=== PATIENT | female | born 1995 | race Caucasian/White ===

== ENCOUNTER 2022-01-09 18:21 | Emergency (ER) | payer OTHER, SELFPAY ==
[2022-01-09 18:30] VITALS: BP 145/96; PULSE 144; RESP 20; TEMP 36.8; O2SAT 99
[2022-01-09 18:40] VITALS: PULSE 100
--- NOTE | 2022-01-09 18:53 | ED.URI ---
HPI - URI/Sore Throat General Chief Complaint: Upper Respiratory Infection Stated Complaint: SOB/Cough Time Seen by Provider: 01/09/22 18:44 Source: patient and RN notes reviewed Mode of arrival: ambulatory Limitations: no limitations History of Present Illness HPI Narrative: Patient presents today complaining of productive cough, shortness of breath with exertion, body aches, subjective fever with chills and sweats, sore throat, absent sense of smell. Currently rates her pain 7/10 and has been taking Advil cold and flu as well as cough drops without much relief. She took a rapid home COVID-19 test today that was negative. Denies history of asthma. She has been using a friend's albuterol inhaler as well, which has been helping. MD elicited complaint: cough Related Data Allergies Allergy/AdvReac Type Severity Reaction Status Date / Time No Known Allergies Allergy Unknown Verified 06/20/21 11:24 Review of Systems Review of Systems: CONSTITUTIONAL: + Chills, sweats, subjective fever, body aches EYES: Denies visual changes, redness, or discharge. ENT: Denies rhinorrhea, congestion, or otalgia.+ Sore throat CARDIOVASCULAR: Denies chest pain, palpitations, or edema. RESPIRATORY: + Cough, shortness of breath. GASTROINTESTINAL: Denies abdominal pain, nausea, vomiting, or diarrhea. GENITOURINARY: Denies dysuria or hematuria. SKIN: Denies rash, itching, or wounds. MUSCULOSKELETAL: Denies back pain, joint pain, or myalgia. NEUROLOGIC: Denies headache, numbness, tingling, or weakness. PSYCH: Denies depression or anxiety. FOR[facility]LY [facility] Past Medical History Medical History (Updated 01/09/22 @ 19:41 by Prema Deutsch, RUTHANN, ) Eczema Surgical History Surgical History Family History Family History Grandparent Hypertension Other Diabetes mellitus Family history of osteoarthritis Social History Social History Smoking status: Never smoker Second hand tobacco smoke exposure: No Alcohol intake: current Comments At time of signature, I have reviewed and agree with nursing past medical, surgical, social and family history unless otherwise noted. Please see nursing chart for further information. There is no relevant family history pertinent to the presenting complaint Exam Narrative: GENERAL: Ill-appearing, well-nourished, and in no acute distress. HEAD: Normocephalic, atraumatic. EYES: EOMI. No redness or drainage. Conjunctivae normal. ENT: Mucous membranes pink and moist. Nares congested with rhinorrhea. TMs normal bilaterally. Throat mildly erythematous and edematous without exudate. Uvula midline. NECK: Normal AROM. Supple. No lymphadenopathy. CHEST: No respiratory distress. Mildly labored with speaking. Wheezes throughout. HEART: Regular rate and rhythm. No murmur appreciated. Normal peripheral pulses. EXTREMITIES: Normal range of motion. No edema. SKIN: Warm, dry, no rash. Capillary refill normal. Normal skin turgor. NEURO: No focal deficits. Alert and oriented x3. Gait steady. PSYCH: Normal affect. No signs of depression or anxiety. Course Course Emergency Course: 1939-wheezing has improved after DuoNeb. Patient states she is able to take a deeper breath. Discussed plan for Covid drive-through testing and plan for prescriptions for albuterol and prednisone. Anticipatory guidance given. Level of Care: Express Care Visit Vital Signs Vital signs: Vital Signs Temperature 98.2 F 01/09/22 18:30 Pulse Rate 144 H 01/09/22 18:30 Respiratory Rate 20 01/09/22 18:30 Blood Pressure 145/96 H 01/09/22 18:30 Pulse Oximetry 99 01/09/22 18:30 Temperature 98.2 F 01/09/22 18:30 Pulse Rate 100 01/09/22 18:40 Respiratory Rate 20 01/09/22 18:30 Blood Pressure 145/96 H 01/09/22 18:30 Pulse Oximetry 99
[2022-01-09] MEDS: IPRATROPIUM BR 0.02% INH SOLN 0.5 MG/2.5 ML VIAL INHALATION (19:12)
[2022-01-09 19:14] VITALS: PULSE 103; RESP 22; O2SAT 94
[2022-01-09] MEDS: ALBUTEROL SULFATE NEB 2.5 MG/3 ML INH INHALATION (19:15)
[2022-01-09 19:35] VITALS: PULSE 99; RESP 21; O2SAT 98
== END 2022-01-09 19:56 | disposition home or self-care (01) ==
PROVIDERS: Emergency Provider Nurse Practitioner
DX: B34.9 Viral infection, unspecified (principal); Z20.822 Contact with and (suspected) exposure to COVID-19
CPT/HCPCS: 99213; G0463

== ENCOUNTER → 2022-01-11 00:45 | Outpatient (CLI) | payer OTHER, SELFPAY ==
[2022-01-11 12:00] LABS: SARS-CoV-2 RNA PCR Negative
== END ==
PROVIDERS: Visit Provider Nurse Practitioner
DX: B34.9 Viral infection, unspecified (principal); Z20.822 Contact with and (suspected) exposure to COVID-19
CPT/HCPCS: C9803; U0003; U0005

== ENCOUNTER 2022-12-06 13:08 | Emergency (ER) | payer OTHER, SELFPAY ==
[2022-12-06 13:19] VITALS: BP 138/87; PULSE 84; RESP 16; TEMP 36.4; O2SAT 100
--- NOTE | 2022-12-06 13:22 | ED.URI ---
HPI - URI/Sore Throat General Chief Complaint: Upper Respiratory Infection Stated Complaint: COUGH/LOSING VOICE Time Seen by Provider: 12/06/22 13:20 Source: patient and RN notes reviewed Mode of arrival: ambulatory Limitations: no limitations History of Present Illness HPI Narrative: 27-year-old female presents with multiple complaints. She reports exposure COVID last week and 3 days ago started having general malaise, cough, sore throat, nasal congestion. She reports she has also been having intermittent urine frequency, urgency, dysuria. She denies fever, aches, chills, sweats, abdominal pain, nausea, vomiting, back pain MD elicited complaint: cough, sore throat and other (UTI symptoms) Related Data Allergies Allergy/AdvReac Type Severity Reaction Status Date / Time No Known Allergies Allergy Unknown Verified 12/06/22 13:16 Review of Systems Review of Systems: CONSTITUTIONAL: Denies malaise, chills, sweats, or fever. EYES: Denies visual changes, redness, or discharge. ENT: Reports rhinorrhea, congestion, sore throat. Denies sinus pain, otalgia CARDIOVASCULAR: Denies chest pain, palpitations, or edema. RESPIRATORY: Reports cough. Denies dyspnea. GASTROINTESTINAL: Denies abdominal pain, nausea, vomiting, diarrhea : Reports intermittent dysuria, frequency. Denies suprapubic pain, abnormal vaginal discharge. Reports intermittent vaginal itching, denies vaginal discharge SKIN: Denies rash or itching. MUSCULOSKELETAL: Denies myalgia. NEUROLOGIC: Denies headache. All systems reviewed & are unremarkable except as noted in HPI and below PMFSH Past Medical History Medical History (Updated 12/06/22 @ 13:54 by Johanny Traore NP) Eczema Surgical History Surgical History Family History Family History Grandparent Hypertension Other Diabetes mellitus Family history of osteoarthritis Social History Social History Smoking status: Never smoker Second hand tobacco smoke exposure: No Alcohol intake: current Comments At time of signature, agree with nursing past medical, surgical, social and family history. There is no relevant family history pertinent to the presenting complaint Exam Narrative: GENERAL: Well-appearing, well-nourished, and in no acute distress. HEAD: Normocephalic EYES: PERRLA, conjunctivae clear ENT: Nares clear, turbinates edematous, clear discharge. Mucous membranes moist. TM pearly jorge with sharp light reflex bilaterally; no tragal tenderness. Oropharynx not erythematous without lesions. Tonsils not enlarged and without exudate, no drooling, no hoarseness, no trismus, uvula midline. NECK: Supple. No lymphadenopathy CHEST: Clear to auscultation, breath sounds equal. No wheezing, rhonchi, rales, or stridor. No respiratory distress, speaks in full sentences. HEART: Regular rate and rhythm. No murmur heard. ABD: No abdominal tenderness or CVA tenderness SKIN: Warm, dry, no rash. NEURO: Alert and oriented x3. PSYCH: Normal mood and affect Course Course Emergency Course: Discussed testing for STI with patient, discuss treatment while results are pending nurse's wheeze results for treatment. Patient prefers to wait for the results for treatment, she understands she may need to return for an injection. Patient is aware of diagnosis, understands and agrees to treatment plan. Anticipatory guidance given. Patient agrees to follow-up as directed and is aware of reasons to seek care at the emergency department. Portions of this record may have been created with voice recognition software Level of Care: Express Care Visit Vital Signs Vital signs: Vital Signs Temperature 97.6 F 12/06/22 13:19 Pulse Rate 84 12/06/22 13:19 Respiratory Rate 16 12/06/22 13:19 Blood Pressure 138/87 12/06/22 13:19
== END 2022-12-06 13:58 | disposition home or self-care (01) ==
PROVIDERS: Emergency Provider Nurse Practitioner
DX: J06.9 Acute upper respiratory infection, unspecified (principal); R30.0 Dysuria; Z20.822 Contact with and (suspected) exposure to COVID-19
CPT/HCPCS: 81003; 81025; 87426; 87491; 87591; 87661; 99214; C9803; G0463

== ENCOUNTER 2023-03-01 16:22 | Emergency (ER) | payer OTHER, SELFPAY ==
--- NOTE | ~2023-03-01 | XR_ITS ---
EXAMINATION: XR shoulder LT min 2V INDICATION: Shoulder pain TECHNIQUE: Three views of the left shoulder are submitted. COMPARISON: None FINDINGS: Normal alignment. No fracture. Glenohumeral and acromioclavicular joint spaces are normal. Soft tissues are unremarkable. IMPRESSION: 1. No acute osseous abnormality. Reviewed, dictated and finalized at location F.
[2023-03-01 16:33] VITALS: BP 127/80; PULSE 111; RESP 16; TEMP 36.5; O2SAT 100
--- NOTE | 2023-03-01 17:16 | ED.UPPEXIN ---
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 Patient reports she was lying on floor and when she used her arm to push herself up she felt a pop in her left shoulder. Patient states she she has shooting pain to her left shoulder shoulder now with full ROM noted with stated discomfort.Patient has strong pulses to her left arm with no reported tingling or numbness. Patient reports that she has been taking Ibuprofen for her discomfort which she rates at 3-4/10. MD complaint: injury to: shoulder Onset (ago): day(s) (4 days) Severity scale (1-10): 4 Treatments prior to arrival: NSAIDS Related Data Home Medications Medication Instructions Recorded Confirmed penicillin V potassium 500 mg 500 mg PO QID 03/01/23 03/01/23 tablet Allergies Allergy/AdvReac Type Severity Reaction Status Date / Time No Known Allergies Allergy Unknown Verified 03/01/23 16:34 Review of Systems Review of Systems: CONSTITUTIONAL: Denies fever, chills, or sweats. EYES: Denies visual changes, redness, or discharge. ENT: Denies rhinorrhea, congestion, sore throat, or otalgia. CARDIOVASCULAR: Denies chest pain, palpitations, or edema. RESPIRATORY: Denies cough or dyspnea. GASTROINTESTINAL: Denies abdominal pain, nausea, vomiting, or diarrhea. GENITOURINARY: Denies dysuria or hematuria. SKIN: Denies rash or itching. MUSCULOSKELETAL: Denies back pain,left shoulder pain, or myalgia. NEUROLOGIC: Denies headache, numbness, or weakness. PSYCHIATRIC: Denies anxiety or depression. All systems reviewed & are unremarkable except as noted in HPI and below PMFSH Past Medical History Medical History (Updated 03/02/23 @ 08:14 by Katiuska Cervantes NP) Eczema Surgical History Surgical History Family History Family History Grandparent Hypertension Other Diabetes mellitus Family history of osteoarthritis Social History Social History Smoking status: Never smoker Second hand tobacco smoke exposure: No Alcohol intake: current Substance use: current Substance use type: marijuana Gender identity (if verbalized by the patient): Female Comments At time of signature, agree with nursing past medical, surgical, social and family history. There is no relevant family history pertinent to the presenting complaint Exam Narrative: GENERAL: Well-appearing, well-nourished, and in no acute distress. HEAD: Normocephalic, atraumatic. EYES: PERRLA and EOMI. ENT: Nares clear, no rhinorrhea or epistaxis. Mucous membranes moist.TM's normal with good light reflex, throat pink no swelling NECK: Supple.no lymphadenopathy CHEST: Clear to auscultation. No respiratory distress. SAO2 100% on room air HEART: Regular rate and rhythm. No murmur heard. Normal peripheral pulses. ABDOMEN: Soft, nontender, nondistended, normal active bowel sounds. EXTREMITIES: Normal range of motion. No edema. Reports pain to left shoulder especially when she reaches up, full ROM with normal sensation and circulation, no bruising or obvious deformity SKIN: Warm, dry, no rash. NEURO: No focal deficits. Alert and oriented x3. Course Course Emergency Course: Patient is aware of diagnosis, understands and agrees to treatment plan.? Anticipatory guidance given.? Patient agrees to follow-up as directed and is aware of reasons to seek care at the emergency department. Portions of this record may have been created with voice recogniti
== END 2023-03-01 17:56 | disposition home or self-care (01) ==
PROVIDERS: Emergency Provider Registered Nurse
DX: S43.402A Unspecified sprain of left shoulder joint, initial encounter (principal); X50.9XXA Other and unspecified overexertion or strenuous movements or postures, initial encounter; F12.90 Cannabis use, unspecified, uncomplicated
CPT/HCPCS: 73030; 99213; G0463

== ENCOUNTER 2025-06-24 15:12 | Emergency (ER) | payer OTHER, SELFPAY ==
[2025-06-24] VITALS (14 sets, daily range): BP systolic 135–140; BP diastolic 95–96; PULSE 84–91; RESP 16–18; TEMP 35.9–36.3; O2SAT 95–100
--- OUTSIDE RECORDS SUMMARY | 2025-06-24 15:20 | XMS_ITS | Encounter Summary ---
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 Name Role Phone None, Provider Primary Care Provider Unavaila ble Reason for Referral * Imaging (Emergency) - New Request Specialty Diagnoses / Procedures Referred By Celio newman Referred To Contact RADIOLOGY Procedures CT HEAD WO CON Lacho Norris PA [address] [place] [address] Phone: tel: fax: Referral ID Status Reason Start Date Expiration Date V isits Requested Visits Authorized [id number] New Request 06/24/2025 06/24/2026 1 1 Reason for Visit * Reason Comments Syncope Encounter Details Date Type Department Care Team (Late st Contact Info) Description 06/24/2025 7:51 AM CDT - 06/24/2025 12:38 PM CDT Emergency [facility] [place] [address] Lacho Norris PA [address] [place], [place] [id number] Syncope Discharge Disposition: Home or Self Care (Routine Discharge) Social History Tobacco Use Types Packs/Day Years Used Date Smoking Tobacco: Never Smokeless Tobacco: Never Alcohol Use Standard Drinks/Week Comments Yes 0 (1 standard drink = 0.6 oz pur e alcohol) <1/week Comments Yes Sex and Gender Information Value Date Recorded Sex Assigned at Female 06/24/2025 8:19 AM CDT Legal Sex Female 1:20 PM CDT Gender Identity Not on file Sexual Orientation Not on file documented as of this encounter Last Filed Vital Signs Vital Sign Reading Time Taken Comments Blood Pressure 133/78 06/24/2025 12:37 PM CDT Pulse 82 06/24/2025 12:37 PM CDT Temperature 36.8 C (98.3 F) 06/24/2025 7:46 AM CDT Respiratory Rate 18 06/24/2025 12:37 PM CDT Oxygen Saturation 99% 06/24/2025 12:37 PM CDT Inhaled Oxygen Concentration - - Weight 84 kg (185 lb 3 oz) 06/24/2025 7:46 AM CD T Height 165.1 cm (5' 5) 06/24/2025 7:46 AM CDT Body Mass Index 30.82 06/24/2025 7:46 AM CDT documented in this encounter Functional Status * Calculated C-SSRS Risk Score (Lifetime/Recent) Answer Date of Assessment Author Status No Risk Indicated 06/24/2025 7:48 AM CDT Tiburcio Coon, RN Active * [place] Suicide Severity Rating Scale (Screener/Recent Self-Report) Question Answer Date of Assessment Author Status 1. Wish to be (Past 1 Month) No 06/24/2025 7:48 AM CDT Jef Coon, RN Acti ve 2. Non-Specific Active Suicidal Thoughts (Past 1 Month) No 06/24/2025 7:48 AM CDT Jef Coon, RN Acti ve 6. Suicidal Behavior (Lifetime) No 06/24/2025 7:48 AM CDT Jef Coon, RN Acti ve documented as of this encounter Discharge Instructions * Discharge Instructions* LYNNE Estrada - 06/24/2025 12:17 PM CDT Please avoid any driving until cleared by your primary care provider or neurologist. Avoid also anyactivities that would put you at risk for head injury such as bicycle riding or swimming alone. Echljei-sti-odvjhun ibuprofen or Tylenol as directed for any pain. May use Zofran as needed for any nausea. Return emergency department if symptoms continue or worsen. * Attachments The following attachments cannot be sent through Care Everywhere. * Seizures Discharge Instructions, Adult ([place] Island[place]) documented in this encounter Medications at Time of Discharge ondansetron (ZOFRAN-ODT) 4 MG disintegrating tablet Take 1 tablet (4 mg total) by mouth every 8 (eight) hours as needed. 20 tablet 06/24/2025 hydrOXYzine (VISTARIL) 25 MG capsuleIndications: Ruptured ectopic (HHS/HCC),S/P laparoscopy Take 1-2 capsules (25-50 mg total) by mouth 4 (four) times daily as needed for Itching or Anxiety (insomnia, nausea or pain). May substitute tabs and or any form of hydroxyzine 30 capsule 2 05/22/2024 oxyCODONE-acetamino phen (PERCOCET) 5-325 MG tabletIndications:A cute Pain < 7 Day Supply Take 1 tablet by mouth every 6 (six) hours as needed. Indications: Acute Pain < 7 Day Supply 15 tablet 05/22/2024 documented as of this encounter ED Notes * Soraya Stephens RN - 06/24/2025 11:02 AM CDT Bed: 22 Expected date: Expected time: Means of arrival: Comments: * Jef Coon RN - 06/24/2025 7:44 AM CDT Patient ambulatory to triage with complaint of a syncopal episode that occurred this morning. Notesshe was vomiting and then loss consciousness. Notes she only remembers waking up. Informed of syncope by her boyfriend.States she is unsure of the duration she was out. Notes headache and cough. Per her boyfriend, he heard a loud crash and found her convulsing on the ground. Confused when she woke but came around quickly. No previous history of seizures or syncope. Per boyfriend she was feeling and acting normally before bed last night. documented in this encounter Plan of Treatment Upcoming Encounters Date Type Department Care Team (Late st Contact Info) Description 08/12/2025 8:20 AM CDT Office Visit [facility] - [address], [address] [place] [address] Gauri Reilly MD [address] [place] [phone] Pending Results Name Type Priority Associated Diagnoses Date /Time ECG 12 lead EKG-NonRad Routine 06/24/2025 8: 32 AM CDT documented as of this encounter Procedures Procedure Name Priority Date/Time Associated Diagnosis Comments CT HEAD WO CON STAT 06/24/2025 9:43 AM CDT ECG 12-LEAD Routine 06/24/2025 8:32 AM CDT Procedure Note - 06/24/2025 8:32 AM CDTThis note is in progress. 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 : 1995 Requested By: LACHO NORRIS Order Number: [id number] Reading MD: Measurements Intervals Ramona Rate: 67 P: 48 DC: 155 QRS: 72 QRSD: 90 T: 56 QT: 374 QTc: 396 Interpretive Statements SINUS RHYTHM WITH SINUS ARRHYTHMIA POSSIBLE LEFT ATRIAL ENLARGEMENT [-0.1mV P-WAVE IN V1/V2] MINIMAL ST DEPRESSION [0.025+ mV ST DEPRESSION] No previous ECG available for comparison COMPREHENSIVE METABOLIC PANEL STAT 06/24/2025 8:27 AM CDT HCG QUANT (SERUM)-CHORIONIC GONADOTROPIN STAT 06/24/2025 8:27 AM CDT CBC W/DIFF AUTOMATED STAT 06/24/2025 8:27 AM CDT TROPONIN, QUANT Routine 06/24/2025 8:27 AM CDT MAGNESIUM STAT 06/24/2025 8:27 AM CDT URINALYSIS STAT 06/24/2025 8:26 AM CDT documented in this encounter Results * CT HEAD WO CON (06/24/2025 9:43 AM CDT) Anatomical Region Laterality Modality Head Computed Tomogra phy 06/24/2025 10:3 1 AM CDT Impressions 06/24/2025 10:32 AM CDT =====IMPRESSION:===== Unremarkable noncontrast CT of the head; no acute intracranial process identified. (CT has limited sensitivity for detection of acute ischemia). If acute ischemia is of clinical concern MRI can be considered. Ordered By: LACHO NORRIS Interpreted By: Yoselin Garcia MD, 06/24/2025 10:31 AM Narrative 06/24/2025 10:32 AM CDT [address] [address] Exam: CT head without contrast Exam Date/Time: 06/24/2025 9:38 AM Indication: 29 female. With syncopal episode Headache, possible seizure Comparison: None Technique: Computed tomography of the head performed without contrast from the vertex to the skull base. A dose lowering technique was used for this procedure, which may include, but is not limited to, dose reduction technique, automated exposure control, the use of iterative reconstruction, and ALARA (As Low As Reasonably Achievable) / Image Gently techniques. CT findings: Normal ventricles and sulci. No intracranial hemorrhage, extra-axial collection, mass effect or midline shift. No acute or chronic infarct identified. [place]-white association is normal. No other abnormal parenchymal density seen. Basilar cisterns are patent. Visualized posterior fossa is grossly unremarkable. Visualized orbits and orbital structures are unremarkable. Mild ethmoid and left maxillary sinus inflammatory mucosal thickening. Remaining imaged sinuses and mastoid air cells are clear. No scalp soft tissue swelling or hematoma identified. Calvarium is unremarkable. Procedure Note Yoselin Garcia MD - 06/24/[address] [address] Exam: CT head without contrast Exam Date/Time: 06/24/2025 9:38 AM Indication: 29 female. With syncopal episode Headache, possible seizure Comparison: None Technique: Computed tomography of the head performed without contrast fromthe vertex to the skull base. A dose lowering technique was used for thisprocedure, which may include, but is not limited to, dose reductiontechnique, automated exposure control, the use of iterativereconstruction, and ALARA (As Low As Reasonably Achievable) / Image Gentlytechniques. CT findings: Normal ventricles and sulci. No intracranial hemorrhage, extra-axialcollection, mass effect or midline shift. No acute or chronic infarct identified. [place]-white association is normal.No other abnormal parenchymal density seen. Basilar cisterns are patent. Visualized posterior fossa is grosslyunremarkable. Visualized orbits and orbital structures are unremarkable. Mild ethmoid and left maxillary sinus inflammatory mucosal thickening.Remaining imaged sinuses and mastoid air cells are clear. No scalp soft tissue swelling or hematoma identified. Calvarium isunremarkable. =====IMPRESSION:===== Unremarkable noncontrast CT of the head; no acute intracranial processidentified. (CT has limited sensitivity for detection of acute ischemia). If acuteischemia is of clinical concern MRI can be considered. Ordered By: LACHO NORRIS Interpreted By: Yoselin Garcia MD, 06/24/2025 10:31 AM us [facility] Final Resul t * TROPONIN, QUANT (06/24/2025 8:27 AM CDT) [facility] TROPONIN I HIGH SENSITIVITY 4 <54 ng/L 06/24/2025 9:20 AM CDT [facility] Comment: HIGH DOSES OF BIOTIN, TROPONIN-SPECIFIC AUTOANTIBODIES, AND ANTIBODY THERAPY CONTAINING HAMA MAY INTERFERE WITH THIS TEST RESULT. CORRELATION TO CLINICAL HISTORY AND PRESENTATION RECOMMENDED. 06/24/2025 8:27 AM CDT [facility] Final Resul t Performing Organization Address City/[facility] Co de Phone Number [facility] [address] [place] [address], * MAGNESIUM (06/24/2025 8:27 AM CDT) [facility] MAGNESIUM 2.3 1.8 - 2.4 MG/DL 06/24/2025 9:02 AM CDT [facility] 06/24/2025 8:27 AM CDT [facility] Final Resul t Performing Organization Address City/[facility] Co de Phone Number [facility] [address] [place] [phone], * Quantitative HCG (06/24/2025 8:27 AM CDT) [facility] HCG QUANTITATIVE <1 MIU/ML 06/24/20 9:23 AM CDT [facility] Comment: WEEKS OF REFERENCE RANGES Non- female < or = 2 0.2 - 1 5 - 50 1 - 2 50 - 500 2 - 3 100 - 5000 3 - 4 500 - 10,000 4 - 5 1000 - 50,000 5 - 6 10,000 - 100,000 6 - 8 15,000 - 200,000 2 - 3 MONTHS 10,000 - 100,000 06/24/2025 8:27 AM CDT us [facility] Final Resul t [facility] [address] [place] [address], [place] [phone] * (ABNORMAL) COMPREHENSIVE METABOLIC PANEL (06/24/2025 8:27 AM CDT) [facility] GLUCOSE 110(H) 70 - 99 MG/DL 06/24/2025 9:02 AM CDT [facility] BUN 16 7 - 18 MG/DL 06/24/2025 9:02 AM CDT [facility] CREATININE S/P/B 0.80 0.55 - 1.02 MG/DL 06/24/2025 9:02 AM CDT [facility] SODIUM S/P/B 138 136 - 145 MMOL/L 06/24/2025 9:02 AM CDT [facility] POTASSIUM S/P/B 4.0 3.5 - 5.1 MMOL/L 06/24/2025 9:02 AM CDT [facility] CHLORIDE S/P/B 107 97 - 115 MMOL/L 06/24/2025 9:02 AM CDT [facility] CO2 26.2 21 - 32 MMOL/L 06/24/2025 9:02 AM CDT [facility] CALCIUM S/P/B 9.6 8.5 - 10.1 MG/DL 06/24/2025 9:02 AM CDT [facility] BILIRUBIN TOTAL S/P/B 0.4 0.2 - 1.2 MG/DL 06/24/2025 9:02 AM CDT [facility] Comment: THIS ASSAY IS NOT RECOMMENDED FOR PATIENTS UNDERGOING TREATMENT WITH ELTROMBOPAG DUE TO THE POTENTIAL FOR FALSELY ELEVATED RESULTS. TOTAL PROTEIN S/P/B 7.8 6.4 - 8.2 G/DL 06/24/2025 9:02 AM CDT [facility] ALBUMIN S/P/B 4.0 3.4 - 5.0 G/DL 06/24/2025 9:02 AM CDT [facility] AST 16 15 - 37 U/L 06/24/2025 9:02 AM CDT [facility] ALT 27 14 - 55 U/L 06/24/2025 9:02 AM CDT [facility] ALKALINE PHOSPHATASE S/P/B 74 50 - 136 U/L 06/24/2025 9:02 AM CDT [facility] ANION GAP 4.8 2 - 10 MMOL/L 06/24/2025 9:02 AM T [facility] BUN CREATININE RATIO 20.1 6 - 26 06/24/2025 9:02 AM T [facility] A/G RATIO 1.1 1.0 - 2.0 RATIO 06/24/2025 9:02 AM T [facility] GFR ESTIMATE >90 >90 ML/MIN/1.7 3 M2 06/24/2025 9:02 AM T [facility] Comment: NOTE: eGFR is not calculated for patients <18 years of age or gender unknown. This is an estimated GFR calculation using the new CKD EPI creatinine equation without race and so does not require a correction factor for race. This estimated GFR should not be used for calculating drug doses. 06/24/2025 8:27 AM CDT [facility] Final Resul t [facility] [address] [place] [address], [place] [phone] * (ABNORMAL) CBC W/DIFF AUTOMATED (06/24/2025 8:27 AM CDT) [facility] WBC 8.45 4.5 - 11.0 x10'3/uL 06/24/2025 8:39 AM CDT [facility] RBC 4.92 4.20 - 5.40 x10'6/uL 06/24/2025 8:39 AM CDT [facility] HGB 14.0 12.0 - 16.0 G/DL 06/24/2025 8:39 AM CDT [facility] HCT 41.9 38.0 - 48.0 % 06/24/2025 8:39 AM CDT [facility] MCV 85.2 81.0 - 99.0 FL 06/24/2025 8:39 AM CDT [facility] MCH 28.5 27.0 - 31.0 PG 06/24/2025 8:39 AM CDT [facility] MCHC 33.4 32.0 - 36.0 G/DL 06/24/2025 8:39 AM CDT [facility] RDW 13.3 11.5 - 14.5 % 06/24/2025 8:39 AM CDT [facility] PLT 319 130 - 400 x10'3/uL 06/24/2025 8:39 AM CDT [facility] MPV 10.0 9.3 - 12.2 FL 06/24/2025 8:39 AM CDT [facility] DIFFERENTIAL TYPE AUTOMATED DIFFERENTIAL 06/24/2025 8:39 AM CDT [facility] NEUTROPHILS % 66.2 % 06/24/2025 8:39 AM CDT [facility] LYMPHOCYTES % 16.7 % 06/24/2025 8:39 AM CDT [facility] MONOCYTES % 7.1 % 06/24/2025 8:39 AM CDT [facility] EOSINOPHILS 8.9 % 06/24/2025 8:39 AM CDT [facility] BASOPHILS 0.9 % 06/24/2025 8:39 AM CDT [facility] IMMATURE GRANS % 0.2 % 06/24/20 8:39 AM CDT [facility] ABS. NEUTROPHILS 5.59 1.80 - 7.70 x10'3/uL 06/24/2025 8:39 AM CDT [facility] ABS. LYMPHOCYTES 1.41 1.00 - 4.80 x10'3/uL 06/24/2025 8:39 AM CDT [facility] ABS. MONOCYTES 0.60 0.24 - 0.86 x10'3/uL 06/24/2025 8:39 AM CDT [facility] ABS. EOSINOPHILS 0.75(H) 0.04 - 0.36 x10'3/uL 06/24/2025 8:39 AM CDT [facility] ABS. BASOPHILS 0.08 0.01 - 0.08 x10'3/uL 06/24/2025 8:39 AM CDT [facility] ABS. IMMATURE GRANULOCYTES 0.02 0.00 - 0.49 x10'3/uL 06/24/2025 8:39 AM CDT [facility] 06/24/2025 8:27 AM CDT us [facility] Final Resul t [facility] [address] [place] [address], [place] [phone] * (ABNORMAL) URINALYSIS (06/24/2025 8:26 AM CDT) SPECIMEN TYPE URINE CLEAN CATCH 06/24/2025 8:27 AM T [facility] COLOR (U) LIGHT YELLOW 06/24/2025 9:04 AM T [facility] TRANSPARENCY CLEAR 06/24/2025 9:04 AM [facility] SPECIFIC GRAVITY (U) 1.028 1.001 - 1.030 06/24/2025 9:04 AM T [facility] U PH 6.0 5.0 - 9.0 06/24/2025 9:04 AM [facility] LEUKOCYTES (U) NEGATIVE NEGATIVE 06/24/2025 9:04 AM T [facility] NITRITES NEGATIVE NEGATIVE 06/24/2025 9:04 AM [facility] PROTEIN RANDOM (U) 300(H) <30 MG/DL 06/24/2025 9:04 AM T [facility] GLUCOSE (U) NORMAL NORMAL MG/DL 06/24/2025 9:04 AM [facility] KETONES MG/DL (U) 10(A) NEGATIVE MG/DL 06/24/2025 9:04 AM [facility] UROBILINOGEN NORMAL NORMAL MG/DL 06/24/2025 9:04 AM T [facility] BILIRUBIN (U) NEGATIVE NEGATIVE MG/DL 06/24/2025 9:04 AM [facility] BLOOD (U) TRACE(A) NEGATIVE 06/24/2025 9:04 AM T [facility] MUCUS RARE /LPF 06/24/2025 9:04 AM [facility] WBC/HPF 2 <6 /HPF 06/24/2025 9:04 AM [facility] RBC/HPF 1 <6 /HPF 06/24/2025 9:04 AM CDT [facility] URINE SPECIMEN OBTAINED BY CLEAN CATCH PROCEDURE / Unknown 06/24/2025 8:26 AM CDT [facility] URINE ORDERABLES Final Resu lt [facility] [address] [place] [address], documented in this encounter Visit Diagnoses Diagnosis Blunt head injury- Primary Head injury, unspecified Syncope Syncope and collapse Seizure-like activity ([facility]/HCC) Other convulsions documented in this encounter Administered Medications Inactive Administered Medications - up to 3 most recent administrations Medication Order MAR Action Action Date Dose Rate Site famotidine (PF) (PEPCID) injection 20 mg 20 mg, Intravenous, Once, 1 dose, On Debbie 06/24/25 at 0830, IV Push over 2 minutes Given 06/24/2025 8:31 AM CDT 20 mg ketorolac (TORADOL) injection 15 mg 15 mg, Intravenous, Once, 1 dose, On Debbie 06/24/25 at 1200, For IV administration, give over 15 seconds. Given 06/24/2025 12:02 PM CDT 15 mg ondansetron (ZOFRAN) injection 4 mg 4 mg, Intravenous, Once, 1 dose, On Debbie 06/24/25 at 0830, IV push over 2-5 minutes. Given 06/24/2025 8:31 AM CDT 4 mg ondansetron (ZOFRAN) injection 4 mg 4 mg, Intravenous, Once, 1 dose, On Debbie 06/24/25 at 1130, IV push over 2-5 minutes. Given 06/24/2025 11:32 AM CDT 4 mg sodium chloride 0.9% bolus infusion 1,000 mL 1,000 mL, Intravenous, Administer over 30 Minutes, Once, 1 dose, On Debbie 06/24/25 at 0830 New Bag 06/24/2025 8:31 AM CDT 1,000 mLs 2000 mL/hr documented in this encounter Active and Recently Administered Medications Times are shown in CDT. Scheduled Medication Order 06/22/2025 06/23/2025 06/24/2025 famotidine (PF) (PEPCID) injection 20 mg (COMPLETED) 20 mg, Intravenous, Once, 1 dose, On Debbie 06/24/25 at 0830, IV Push over 2 minutes 0831 (Given - Provid er: Kaylie Larson, RN) ketorolac (TORADOL) injection 15 mg (COMPLETED) 15 mg, Intravenous, Once, 1 dose, On Debbie 06/24/25 at 1200, For IV administration, give over 15 seconds. 1202 (Given - Provid er: Eileen Matos, YOSHI) ondansetron (ZOFRAN) injection 4 mg (COMPLETED) 4 mg, Intravenous, Once, 1 dose, On Debbie 06/24/25 at 0830, IV push over 2-5 minutes. 0831 (Given - Provid er: Kaylie Larson, YOSHI) ondansetron (ZOFRAN) injection 4 mg (COMPLETED) 4 mg, Intravenous, Once, 1 dose, On Debbie 06/24/25 at 1130, IV push over 2-5 minutes. 1132 (Given - Provid er: Thi Ballesteros, YOSHI) sodium chloride 0.9% bolus infusion 1,000 mL (COMPLETED) 1,000 mL, Intravenous, Administer over 30 Minutes, Once, 1 dose, On Debbie 06/24/25 at 0830 0831 (New Bag - Prov ider: Kaylie Larson, YOSHI)1114 (Infusion Stop Time - Provider: Thi Ballesteros RN) documented in this encounter Care Teams [employer] Gauger Relationship Specialty Start Date End Date None, Provider, MD PCP - General UNKNOWN PHYSICIAN SPECIALTY 05/11/24 documented as of this encounter
--- OUTSIDE RECORDS SUMMARY | 2025-06-24 15:20 | XMS_ITS | Clinical Summary ---
Author Organization [facility] Address [address] [place] [address] Care Team Providers Care Master [employer] Name Role Phone Unavailable Primary Care Provider Unavailabl e Allergies No known active allergies Medications ibuprofen (MOTRIN) 600 mg tablet Take 1 Tablet (600 mg) by mouth every 6 hours as needed for Pain. 30 Tablet 5 Active benzonatate (TESSALON) 200 mg capsule Take 1 Capsule (200 mg) by mouth 3 times daily. 30 Capsule 5 Active albuterol sulfate HFA 90 mcg/actuation aerosol inhaler Take 2 Puffs by inhalation every 4 hours as needed for Shortness of Breath, Wheezing or Other (See Comment) (cough). 8.5 Gram 5 Active ondansetron (ZOFRAN ODT) 4 mg Tablet, Rapid Dissolve Take 1 Tablet (4 mg) by mouth every 8 hours as needed for Nausea/Emesis. Dissolve tablet on top of tongue, then swallow with saliva. 10 Tablet 5 Active Active Problems No known active problems Encounters Date Type Department Care Team Description 06/16/2025 External Device Data [facility]CTION Provider, Abstract 05/19/2025 External Device Data [facility] Provider, Abstract 05/18/2025 External Device Data [facility] Provider, Abstract 05/18/2025 External Device Data [facility] Provider, Abstract 05/04/2025 External Device Data [facility] Provider, Abstract 04/22/2025 External Device Data [facility] Provider, Abstract 04/21/2025 External Device Data [facility] Provider, Abstract 04/21/2025 External Device Data [facility]STRACTION Provider, Abstract 04/20/2025 External Device Data [facility] Provider, Abstract 04/17/2025 9:22 PM CDT - 04/18/2025 1:12 AM CDT Emergency [facility] Emergency Department [address] [place] [address] Singh Mustafa MD Viral illness (Primary Dx); Dehydration; Nausea and vomiting, unspecified vomiting type; Dermoid cyst of left ovary Discharge Disposition: Home or Self Care 04/17/2025 4:00 PM CDT Office Visit [facility] [address] [place] [phone] Catherine Bush FNP Viral upper respiratory illness (Primary Dx); Sore throat; Contact with and (suspected) exposure to covid-19 04/17/2025 Travel from Last 3 Months Social History Tobacco Use Types Packs/Day Years Used Date Smoking Tobacco: Never Assessed Comments Unknown Sex and Gender Information Value Date Recorded Sex Assigned at Not on file Legal Sex Female 11:59 PM CDT Gender Identity Not on file Sexual Orientation Not on file Last Filed Vital Signs Vital Sign Reading Time Taken Comments Blood Pressure 147/88 04/18/2025 1:11 AM CDT Pulse 79 04/18/2025 1:11 AM CDT Temperature 36.6 C (97.9 F) 04/18/2025 1:11 AM CDT Respiratory Rate 18 04/18/2025 1:11 AM CDT Oxygen Saturation 99% 04/18/2025 1:11 AM CDT Inhaled Oxygen Concentration - - Weight 81.6 kg (180 lb) 04/17/2025 9:17 PM CDT Height 165.1 cm (5' 5) 04/17/2025 9:17 PM CDT Body Mass Index 29.95 04/17/2025 9:17 PM CDT Plan of Treatment Health Maintenance Due Date Last Done Comments HPV VACCINES (1 - 3-dose series) 2010 DTAP/TDAP/TD VACCINES (3 - Tdap) 2014 12/05/18 96, 1995 CERVICAL CANCER SCREENING 2016 HPV/Cotest (21-29) 2016 PAP SMEAR 2016 INFLUENZA VACCINE (#1) 2025 HEPATITIS B VACCINES Completed 03/12/1996, 1995, 1995 Procedures Procedure Name Priority Date/Time Associated Diagnosis Comments CT 2D RECONSTRUCTION Stat 04/18/2025 12:[address] ABDOMEN PELVIS W CONTRAST Stat 04/18/2025 12:18 AM CDT URINALYSIS W/REFLEX MICROSCOPIC Stat 04/17/2025 10:16 PM CDT POC , URINE Stat 04/17/2025 10:14 PM CDT MONONUCLEOSIS SCREEN Stat 04/17/2025 10:00 PM CDT POC CREATININE Stat 04/17/2025 9:53 PM CDT RESPIRATORY PATHOGEN PCR PANEL Stat 04/17/2025 9:53 PM CDT PROLACTIN Stat 04/17/2025 9:51 PM CDT HCG QUANTITATIVE, BLOOD Stat 04/17/20 9:51 PM CDT LIPASE Stat 04/17/2025 9:51 PM CDT COMPREHENSIVE METABOLIC PANEL Stat 04/17/2025 9:51 PM CDT CBC WITH DIFFERENTIAL Stat 04/17/2025 9:51 PM CDT POC RAPID STREP A ANTIGEN Routine 04/17/2025 4:13 PM CDT Sore throat POC COVID-19 ANTIGEN Routine 04/17/2025 4:12 PM CDT Sore throat POC INFLUENZA A AND B ANTIGEN Routine 04/17/2025 4:12 PM CDT Sore throat from Last 3 Months Results * CT 2D RECONSTRUCTION (04/18/2025 12:18 AM CDT) Anatomical Region Laterality Modality Computed Tomogra phy 04/18/2025 12:1 1 AM CDT Impressions 04/18/2025 12:54 AM CDT IMPRESSION: 1. No acute findings within the abdomen/pelvis. No acute bowel pathology. 2. No acute lumbar spine fracture or traumatic malalignment. 3. Left ovarian dermoid cyst up to 6.2 cm in size. Follow-up RADIATION PROTECTION ENGINEER evaluation recommended. DICTATION LOCATION: Location 4 Narrative 04/18/2025 12:54 AM CDT EXAM: CT ABDOMEN PELVIS W CONTRAST, CT 2D RECONSTRUCTION, 04/18/2025 12:18 AM HISTORY: 29 years Female Abdominal pain, acute, nonlocalized, trauma TECHNIQUE: Axial CT of the abdomen and pelvis after the intravenous administration of IOPAMIDOL 61 % INTRAVENOUS SOLUTION (MULTI-DOSE BULK PACK) Given:100 mL. Oral contrast was not administered for the study. Sagittal and coronal reformats were generated. Lumbar spine CT also submitted from the original source images with coronal and sagittal reformats. In accordance with CT policies/protocols and the ALARA principal, radiation dose reduction techniques (such as automated exposure control, adjustment of mA/kV according to patient's size and/or iterative reconstruction technique) were utilized for this examination. COMPARISONS: No relevant priors. FINDINGS: Lung bases: Unremarkable. Liver: Unremarkable. Gallbladder/biliary:Unremarkable. Spleen: Unremarkable. Adrenal glands: Unremarkable. Pancreas: Unremarkable. Kidneys: No renal stones or hydronephrosis. Bowel: No bowel obstruction or acute inflammatory changes. No diverticulitis or appendicitis. No free air or ascites. Vascular/aorta: Normal caliber abdominal aorta. Lymph nodes: No adenopathy. Bladder: Unremarkable. Reproductive: Left ovarian bilobed structure containing bulk fat density representing ovarian dermoid cyst, in aggregate measures 6.2 x 4.5 cm.. Abdominal wall: No hernia identified. Osseous structures: No destructive bone lesions. LUMBAR SPINE: No acute fracture or malalignment. Mild disc degeneration at L5-S1. Vertebral body heights and disc spaces otherwise maintained. Procedure Note Good Chin MD - 04/18/2025 EXAM: CT ABDOMEN PELVIS W CONTRAST, CT 2D RECONSTRUCTION, 04/18/2025 12:18 AM HISTORY: 29 years Female Abdominal pain, acute, nonlocalized, trauma TECHNIQUE: Axial CT of the abdomen and pelvis after the intravenous administration of IOPAMIDOL 61 % INTRAVENOUS SOLUTION (MULTI-DOSE BULK PACK) Given:100 mL. Oral contrast was not administered for the study. Sagittal and coronal reformats were generated. Lumbar spine CT also submitted from the original source images with coronal and sagittal reformats. In accordance with CT policies/protocols and the ALARA principal, radiation dose reduction techniques (such as automated exposure control, adjustment of mA/kV according to patient's size and/or iterative reconstruction technique) were utilized for this examination. COMPARISONS: No relevant priors. FINDINGS: Lung bases: Unremarkable. Liver: Unremarkable. Gallbladder/biliary:Unremarkable. Spleen: Unremarkable. Adrenal glands: Unremarkable. Pancreas: Unremarkable. Kidneys: No renal stones or hydronephrosis. Bowel: No bowel obstruction or acute inflammatory changes. No diverticulitis or appendicitis. No free air or ascites. Vascular/aorta: Normal caliber abdominal aorta. Lymph nodes: No adenopathy. Bladder: Unremarkable. Reproductive: Left ovarian bilobed structure containing bulk fat density representing ovarian dermoid cyst, in aggregate measures 6.2 x 4.5 cm.. Abdominal wall: No hernia identified. Osseous structures: No destructive bone lesions. LUMBAR SPINE: No acute fracture or malalignment. Mild disc degeneration at L5-S1. Vertebral body heights and disc spaces otherwise maintained. IMPRESSION: 1. No acute findings within the abdomen/pelvis. No acute bowel pathology. 2. No acute lumbar spine fracture or traumatic malalignment. 3. Left ovarian dermoid cyst up to 6.2 cm in size. Follow-up RADIATION PROTECTION ENGINEER evaluation recommended. DICTATION LOCATION: Location 4 us Singh Mustafa MD CT ORDERABLES Final Res ult * CT ABDOMEN PELVIS W CONTRAST (04/18/2025 12:18 AM CDT) Anatomical Region Laterality Modality Abdomen Computed Tomogra phy 04/18/2025 12:1 1 AM CDT Impressions 04/18/2025 12:54 AM CDT IMPRESSION: 1. No acute findings within the abdomen/pelvis. No acute bowel pathology. 2. No acute lumbar spine fracture or traumatic malalignment. 3. Left ovarian dermoid cyst up to 6.2 cm in size. Follow-up RADIATION PROTECTION ENGINEER evaluation recommended. DICTATION LOCATION: Location 4 [facility] 04/18/2025 12:54 AM CDT EXAM: CT ABDOMEN PELVIS W CONTRAST, CT 2D RECONSTRUCTION, 04/18/2025 12:18 AM HISTORY: 29 years Female Abdominal pain, acute, nonlocalized, trauma TECHNIQUE: Axial CT of the abdomen and pelvis after the intravenous administration of IOPAMIDOL 61 % INTRAVENOUS SOLUTION (MULTI-DOSE BULK PACK) Given:100 mL. Oral contrast was not administered for the study. Sagittal and coronal reformats were generated. Lumbar spine CT also submitted from the original source images with coronal and sagittal reformats. In accordance with CT policies/protocols and the ALARA principal, radiation dose reduction techniques (such as automated exposure control, adjustment of mA/kV according to patient's size and/or iterative reconstruction technique) were utilized for this examination. COMPARISONS: No relevant priors. FINDINGS: Lung bases: Unremarkable. Liver: Unremarkable. Gallbladder/biliary:Unremarkable. Spleen: Unremarkable. Adrenal glands: Unremarkable. Pancreas: Unremarkable. Kidneys: No renal stones or hydronephrosis. Bowel: No bowel obstruction or acute inflammatory changes. No diverticulitis or appendicitis. No free air or ascites. Vascular/aorta: Normal caliber abdominal aorta. Lymph nodes: No adenopathy. Bladder: Unremarkable. Reproductive: Left ovarian bilobed structure containing bulk fat density representing ovarian dermoid cyst, in aggregate measures 6.2 x 4.5 cm.. Abdominal wall: No hernia identified. Osseous structures: No destructive bone lesions. LUMBAR SPINE: No acute fracture or malalignment. Mild disc degeneration at L5-S1. Vertebral body heights and disc spaces otherwise maintained. Procedure Note Good Chin MD - 04/18/2025 EXAM: CT ABDOMEN PELVIS W CONTRAST, CT 2D RECONSTRUCTION, 04/18/2025 12:18 AM HISTORY: 29 years Female Abdominal pain, acute, nonlocalized, trauma TECHNIQUE: Axial CT of the abdomen and pelvis after the intravenous administration of IOPAMIDOL 61 % INTRAVENOUS SOLUTION (MULTI-DOSE BULK PACK) Given:100 mL. Oral contrast was not administered for the study. Sagittal and coronal reformats were generated. Lumbar spine CT also submitted from the original source images with coronal and sagittal reformats. In accordance with CT policies/protocols and the ALARA principal, radiation dose reduction techniques (such as automated exposure control, adjustment of mA/kV according to patient's size and/or iterative reconstruction technique) were utilized for this examination. COMPARISONS: No relevant priors. FINDINGS: Lung bases: Unremarkable. Liver: Unremarkable. Gallbladder/biliary:Unremarkable. Spleen: Unremarkable. Adrenal glands: Unremarkable. Pancreas: Unremarkable. Kidneys: No renal stones or hydronephrosis. Bowel: No bowel obstruction or acute inflammatory changes. No diverticulitis or appendicitis. No free air or ascites. Vascular/aorta: Normal caliber abdominal aorta. Lymph nodes: No adenopathy. Bladder: Unremarkable. Reproductive: Left ovarian bilobed structure containing bulk fat density representing ovarian dermoid cyst, in aggregate measures 6.2 x 4.5 cm.. Abdominal wall: No hernia identified. Osseous structures: No destructive bone lesions. LUMBAR SPINE: No acute fracture or malalignment. Mild disc degeneration at L5-S1. Vertebral body heights and disc spaces otherwise maintained. IMPRESSION: 1. No acute findings within the abdomen/pelvis. No acute bowel pathology. 2. No acute lumbar spine fracture or traumatic malalignment. 3. Left ovarian dermoid cyst up to 6.2 cm in size. Follow-up RADIATION PROTECTION ENGINEER evaluation recommended. DICTATION LOCATION: Location 4 us Singh Mustafa MD CT ORDERABLES Final Res ult * (ABNORMAL) URINALYSIS WITH REFLEX MICROSCOPIC (04/17/2025 10:16 PM CDT) COLOR UA Yellow Pale to Dark Yellow 04/17/2025 10:41 PM CDT [facility] CLARITY UA Cloudy(A) Clear 04/17/2025 10:41 PM CDT [facility] SPECIFIC GRAVITY UA 1.030 1.003 - 1.035 04/17/2025 10:41 PM CDT [facility] SERVICES - [facility] PH UA 5.0 5.0 - 8.0 04/17/2025 10:41 PM CDT [facility] - [facility] LEUKOCYTE ESTERASE UA Negative Negative 04/17/2025 10:41 PM CDT [facility] SERVICES - [facility] NITRITE UA Negative Negative 04/17/2025 10:41 PM CDT [facility] SERVICES - . [facility] PROTEIN UA 2+(A) Negative 04/17/2025 10:41 PM CDT [facility] SERVICES - . [facility] GLUCOSE UA Negative Negative 04/17/2025 10:41 PM CDT [facility] SERVICES - . [facility] KETONES UA 2+(A) Negative 04/17/2025 10:41 PM T [facility] SERVICES - [facility] UROBILINOGEN UA Normal <2.0 mg/dL 10:41 PM T [facility] - [facility] BILIRUBIN UA Negative Negative 04/17/2025 10:41 PM T [facility] SERVICES - [facility] BLOOD UA Negative Negative 04/17/2025 10:41 PM CDT [facility] SERVICES - [facility] WBC UA 0-2 0 - 2 /hpf 04/17/2025 10:41 PM CDT [facility] SERVICES - . [place] RBC UA 0-2 0 - 2 /hpf 04/17/2025 10:41 PM CDT [facility] SERVICES - . [facility] BACTERIA UA Negative Negative /hpf 04/17/2025 10:41 PM [facility] SERVICES - [facility] EPITHELIAL CELLS, URINE 0-5 0 - 5 /hpf 04/17/2025 10:41 PM T [facility] SERVICES - [facility] Urine URINE SPECIMEN OBTAINED BY CLEAN CATCH PROCEDURE / Unknown Collection / Unknown 04/17/2025 10:16 PM CDT 04/17/2025 10:20 PM CDT us Singh Mustafa MD URINE ORDERABLES Final Re sult [facility] SERVICES - [facility] CLIA# [id number] [address] [place] [address] * POC , URINE (04/17/2025 10:14 PM CDT) Pathologist [facility] HCG QUAL URINE Negative Negative 04/17/2025 10:14 PM CDT [facility] Urine 04/17/2025 10:1 4 PM CDT 04/17/2025 10:20 PM CDT Narrative [facility] - 04/17/2025 10:14 PM CDT Positive : Result is greater than or equal to 25 mIU/mL Negative: Result is less than 25 mIU/mL Invalid: Result is borderline or indeterminate,send to lab for serum test methodology. Singh Mustafa MD POINT OF CARE TESTING Fin al Result Performing Organization Address City/[facility]/ZIP Co de Phone Number [facility] CLIA# [id number] [address] [place] [address] * MONONUCLEOSIS SCREEN (04/17/2025 10:00 PM CDT) [facility] MONONUCLEOSIS SCREEN Negative Negative 04/17/2025 10:34 PM CDT [facility] Blood Venipuncture / Unknown 04/17/2025 10:00 PM CDT 04/17/2025 10:01 PM CDT Singh Mustafa MD HEMATOLOGY ORDERABLES Fin al Result [facility] CLCO# [id number] [address] [place] [address] * POC CREATININE (04/17/2025 9:53 PM CDT) [facility] CREATININE POC 0.70 0.50 - 1.00 mg/dL 04/17/2025 9:53 PM CDT [facility] [employer] [facility] GFR POC >60 >=60 mL/min/1.7 3 sq meter 04/17/2025 9:53 PM [facility] Comment:eGFR calculated with 2020 CKD-EPI equation. Vegetarian diet, extremely high or low muscle mass, and may affect results. Cystatin C with Glomerular Filtration Rate is a suitable alternative for these patients. Blood, whole 04/17/2025 9:53 PM CDT 04/17/2025 9:57 PM CDT Singh Mustafa MD POINT OF CARE TESTING Fin al Result Performing Organization Address [facility] Co de Phone Number [facility] CLIA# [id number] [address] [facility] [place] [address] * (ABNORMAL) RESPIRATORY PATHOGEN PCR PANEL (04/17/2025 9:53 PM CDT) [facility] COVID-19 PCR NOT DETECTED Not Detected 04/17/20 11:21 PM CDT [facility] Human Rhinovirus/En terovirus by PCR DETECTED(A) Not Detected 04/17/2025 11:21 PM CDT [facility] Upper Respiratory ENTIRE NASOPHARYNX / Unknown Collection / Unknown 04/17/2025 9:53 PM CDT 04/17/2025 9:56 PM CDT Eric [facility] - 04/17/2025 11:21 PM CDT The Film Array Respiratory Panel (RP2.1) is a multiplex nucleic acid detection test for 22 targets. Viruses: Adenovirus Coronavirus HKU1, NL63, 229E, and OC43 COVID-19/Severe Acute Respiratory Syndrome Coronavirus 2 Influenza A with the following subtypes: H1, H1-2009, and H3 Influenza B Human Metapneumovirus Parainfluenza virus 1, 2, 3, and 4 Respiratory Syncytial virus (RSV) Rhinovirus/Enterovirus (cannot differentiate due to genetic similarities) Bacteria: Bordetella pertussis Bordetella parapertussis Chlamydophila pneumoniae Mycoplasma pneumoniae Singh Mustafa MD MICROBIOLOGY - GENERAL OR DERABLES Final Result Performing Organization Address [facility]/ZIP Co de Phone Number [facility] CLIA# [id number] [address] [place] [address] * (ABNORMAL) CBC WITH DIFFERENTIAL (04/17/2025 9:51 PM CDT) [facility] WBC 9.5 4.0 - 9.8 K/uL 04/17/2025 10:08 PM CDT [facility] SERVICES - [facility] RBC 5.28(H) 3.90 - 4.90 M/uL 04/17/2025 10:08 PM CDT [facility] - [facility] [place] HEMOGLOBIN 15.0(H) 11.8 - 14.8 g/dL 04/17/2025 10:08 PM CDT [facility] - [facility] [place] HEMATOCRIT 45.8(H) 35.5 - 44.0 % 04/17/2025 10:08 PM CDT [facility] SERVICES - . [facility] MCV 86.7 82.0 - 99.0 fL 04/17/2025 10:08 PM CDT [facility] - . [facility] MCH 28.4 27.2 - 32.6 pg 04/17/2025 10:08 PM CDT [facility] - . [facility] MCHC 32.8 31.5 - 35.5 g/dL 04/17/2025 10:08 PM CDT [facility] - . [facility] RDW 13.2 11.5 - 14.5 % 04/17/2025 10:08 PM CDT [facility] - . [facility] RDW-STDEV 41.6 37.1 - 48.7 fL 04/17/2025 10:08 PM CDT [facility] - . [place] PLATELETS 273 140 - 350 K/uL 04/17/2025 10:08 PM CDT [facility] - . [place] MPV 10.0 9.3 - 12.4 fL 04/17/2025 10:08 PM CDT [facility] NEUTROPHILS 79 % 04/17/2025 10:08 PM CDT [facility] LYMPHOCYTES 7 % 04/17/2025 10:08 PM CDT [facility] MONOCYTES 11 % 04/17/2025 10:08 PM CDT [facility] - [facility] EOSINOPHILS 1 % 04/17/2025 10:08 PM CDT [facility] SERVICES - . [facility] BASOPHILS 1 % 04/17/2025 10:08 PM CDT [facility] SERVICES - [facility] IMMATURE GRANULOCYTES 0 % 04/17/2025 10:08 PM CDT [facility] SERVICES - . [facility] NEUTROPHIL ABSOLUTE 7.49(H) 1.90 - 7.00 K/uL 04/17/2025 10:08 PM CDT [facility] SERVICES - . [facility] LYMPHOCYTE ABSOLUTE 0.70 0.70 - 4.50 K/uL 04/17/2025 10:08 PM CDT [facility] SERVICES - . [facility] MONOCYTE ABSOLUTE 1.06 0.10 - 1.30 K/uL 04/17/2025 10:08 PM CDT [facility] SERVICES - . [facility] EOSINOPHIL ABSOLUTE 0.11 0.00 - 0.70 K/uL 04/17/2025 10:08 PM CDT [facility] SERVICES - . [facility] BASOPHILS ABSOLUTE 0.07 0.00 - 0.20 K/uL 04/17/2025 10:08 PM CDT [facility] SERVICES - [facility] IMMATURE GRANULOCYTES ABSOLUTE 0.03 0.00 - 0.03 K/uL 04/17/2025 10:08 PM CDT [facility] SERVICES - [facility] Blood Venipuncture / Unknown 04/17/2025 9:51 PM CDT 04/17/2025 9:55 PM CDT Singh Mustafa MD HEMATOLOGY ORDERABLES Fin al Result [facility]ATORY SERVICES [facility] CLIA# [id number] [address] [facility] [place], [place] [id number] * PROLACTIN (04/17/2025 9:51 PM CDT) [facility] PROLACTIN 16.2 4.8 - 23.3 ng/mL 04/17/2025 10:37 PM CDT [facility] SERVICES - [facility] Blood Venipuncture / Unknown 04/17/2025 9:51 PM CDT 04/17/2025 9:55 PM CDT Singh Mustafa MD CHEMISTRY ORDERABLES Faviola l [id number] [address] [place] [address] * HCG QUANTITATIVE, BLOOD (04/17/2025 9:51 PM CDT) Pathologist [facility] HCG QUANT, BLOOD <0.6 <5.0 mIU/mL 04/17/2025 10:38 PM CDT [facility] Comment: HCG Quantitative Reference Range Male <= 2 mIU/mL Female Non premenopausal <= 1 mIU/mL Non postmenopausal <= 7 mIU/mL Gestational Age HCG Concentration 3 Weeks 5.8 - 71.2 mIU/mL 4 Weeks 9.5 - 750 mIU/mL 5 Weeks 217 - 7138 mIU/mL 6 Weeks 158 - 31,795 mIU/mL 7 Weeks 3697 - 163,563 mIU/mL 8 Weeks 32,065 - 149,571 mIU/mL 9 Weeks 63,803 - 151,410 mIU/mL 10 Weeks 46,509 - 186,977 mIU/mL 12 Weeks 27,832 - 210,612 mIU/mL 14 Weeks 13,950 - 62,530 mIU/mL 15 Weeks 12,039 - 70,971 mIU/mL 16 Weeks 9040 - 56,451 mIU/mL 17 Weeks 8175 - 55,868 mIU/mL 18 Weeks 8099 - 58,176 mIU/mL Blood Venipuncture / Unknown 04/17/2025 9:51 PM CDT 04/17/2025 9:55 PM CDT Singh Mustafa MD CHEMISTRY ORDERABLES Faviola l Result [facility]# [id number] [address] [place] [address] * LIPASE (04/17/2025 9:51 PM CDT) LIPASE 16 13 - 60 U/L 04/17/2025 10:37 PM CDT [facility] SERVICES [facility] Blood Venipuncture / Unknown 04/17/2025 9:51 PM CDT 04/17/2025 9:55 PM CDT Singh Mustafa MD CHEMISTRY ORDERABLES Faviola l Result [facility] SERVICES [facility] CLIA# [id number] [address] [place] [address] * (ABNORMAL) COMPREHENSIVE METABOLIC PANEL (04/17/2025 9:51 PM CDT) Pathologist [facility] SODIUM 138 136 - 145 mmol/L 04/17/2025 10:37 PM CDT [facility] SERVICES [facility] POTASSIUM 4.3 3.5 - 5.0 mmol/L 04/17/2025 10:37 PM CDT [facility] SERVICES - [facility] Comment:Hemolysis present. R esult may be falsely elevated. CHLORIDE 103 98 - 107 mmol/L 04/17/2025 10:37 PM CDT [facility] - [facility] CO2 21(L) 22 - 29 mmol/L 04/17/2025 10:37 PM CDT [facility] - [facility] CALCIUM 9.7 8.6 - 10.2 mg/dL 04/17/2025 10:37 PM CDT [facility] - . [facility] BUN 11 6 - 20 mg/dL 04/17/2025 10:37 PM CDT [facility] - . [facility] CREATININE 0.68 0.51 - 0.95 mg/dL 04/17/2025 10:37 PM CDT [facility] - . [facility] GLUCOSE 91 74 - 99 mg/dL 04/17/2025 10:37 PM CDT [facility] - [facility] TOTAL PROTEIN 7.7 6.7 - 8.6 g/dL 04/17/2025 10:37 PM CDT [facility] - [facility] ALBUMIN 4.7 3.5 - 5.2 g/dL 04/17/2025 10:37 PM CDT [facility] BILIRUBIN TOTAL 0.7 0.0 - 1.2 mg/dL 04/17/2025 10:37 PM CDT [facility] ALKALINE PHOSPHATASE 87 35 - 104 U/L 04/17/2025 10:37 PM CDT [facility] AST 04/17/2025 10:37 PM CDT [facility] Comment:Test cannot be perfo rmed. Sample hemolysis interference above limits. Redraw if indicated. ALT 22 <34 U/L 04/17/2025 10:37 PM T [facility] GFR >60 >=60 mL/min/1.7 3 sq meter 04/17/2025 10:37 PM T [facility] Comment:eGFR calculated with 2020 CKD-EPI equation. Vegetarian diet, extremely high or low muscle mass, and may affect results. Cystatin C with Glomerular Filtration Rate is a suitable alternative for these patients. ANION GAP 14 8 - 16 mmol/L 04/17/2025 10:37 PM CDT [facility] Blood Venipuncture / Unknown 04/17/2025 9:51 PM CDT 04/17/2025 9:55 PM CDT Narrative [facility] - 04/17/2025 10:37 PM CDT Samples containing indocyanine green cause interferences on Total and/or Direct Bilirubin and must not be measured. us Singh Mustafa MD CHEMISTRY ORDERABLES Faviola l Result [facility] CLIA# [id number] [facility] RE[facility]ARY HINA CISNEROS [id number] * POC RAPID STREP A ANTIGEN (04/17/2025 4:13 PM CDT) [facility] RAPID STREP POC Negative Negative, Indeterminate [facility] INTERNAL KIT QC POC Pass Pass [facility] KIT LOT NUMBER POC [id number] [facility] KIT EXP DATE POC 02/11/26 [facility] READ METHOD POC Visual [facility] Upper Respiratory SPECIMEN FROM THROAT / Unknown 04/17/2025 4:13 PM CDT Catherine Bush [facility] POINT OF CARE TESTING Final Result Performing Organization Address City/[facility]/ZIP Co de Phone Number [facility] CLIA# [id number] [place] [address] * POC COVID-19 ANTIGEN (04/17/2025 4:12 PM CDT) COVID-19 ANTIGEN POC Presumptively Negative Presumptively Negative [facility] INTERNAL KIT QC POC Pass Pass [facility] KIT [address] NUMBER POC [id number] [facility] KIT EXP DATE POC 02/06/2026 [facility] READ METHOD POC Visual [facility] Upper Respiratory 04/17/2025 4:12 PM CDT Catherine Bush [facility] POINT OF CARE TESTING Final Result Performing Organization Address City/[facility] Co de Phone Number [facility] CLIA# [id number] [place] [address] * POC INFLUENZA A AND B ANTIGEN (04/17/2025 4:12 PM CDT) INFLUENZA A AG POC Negative/Not Detected Negative/No t Detected [facility] INFLUENZA B AG POC Negative/Not Detected Negative/No t Detected [facility] INTERNAL KIT QC POC Pass Pass [facility] KIT [address] NUMBER POC [id number] [facility] KIT EXP DATE POC 01/01/2027 [facility] READ METHOD POC Visual [facility] Upper Respiratory ANTERIOR NARES SWAB / Unknown 04/17/2025 4:12 PM CDT Catherine Bush [employer]YR[employer] POINT OF CARE TESTING Final Result [facility] CLIA# [id number] [place] [address] from Last 3 Months Insurance [id number] [id number]
--- OUTSIDE RECORDS SUMMARY | 2025-06-24 15:21 | XMS_ITS | Encounter Summary ---
Author Organization [facility] Address Formerly [facility] [place] [address] Care Team Providers Care Marriage And Family Teacher Name Role Phone None, Provider Primary Care Provider Unavaila ble Encounter Details Date Type Department Care Team (Latest Contact Info) Description 06/24/2025 Travel Social History Tobacco Use Types Packs/Day Years [...] on file documented as of this encounter Functional Status * Calculated C-SSRS Risk Score (Lifetime/Recent) Answer Date of Assessment Author Status No Risk Indicated 06/24/2025 7:48 AM CDT Leonides Coon, RN Active * Barber Suicide Severity Rating Scale (Screener/Recent Self-Report) Question [...] Acti ve documented as of this encounter Plan of Treatment Upcoming Encounters Date Type Department Care Team (Late st Contact Info) Description 08/12/2025 8:20 AM CDT Office Visit [facility] Family Medicine - [place] [address], [address] [place] [phone] Gauri Reilly MD [address] [place] [address] [place] [phone] documented as of this encounter Visit Diagnoses Not on filedocumented in this encounter Care Teams Marriage And Family Teacher Relationship Specialty Start Date End Date None, Provider, PCP - General UNKNOWN PHYSICIAN SPECIALTY 05/11/24 documented as of this encounter
--- OUTSIDE RECORDS SUMMARY | 2025-06-24 15:21 | XMS_ITS | Clinical Summary ---
Author Organization [facility] Address [facility] [place] [address] Care Team Providers Care Director Of Scientific Research Name Role Phone None, Provider MD Primary Care Provider Unavaila ble Allergies No known active allergies Medications oxyCODONE-acetamin ophen (PERCOCET) 5-325 MG tabletIndications: Acute Pain < 7 Day Supply Take 1 tablet by mouth every 6 (six) hours as needed. Indications: Acute Pain < 7 Day Supply 15 tablet 05/22/20 24 Active hydrOXYzine (VISTARIL) 25 MG capsuleIndications :Ruptured ectopic (HHS/HCC),S/P laparoscopy Take 1-2 capsules (25-50 mg total) by mouth 4 (four) times daily as needed for Itching or Anxiety (insomnia, nausea or pain). May substitute tabs and or any form of hydroxyzine 30 capsule 2 05/22/20 24 Active ondansetron (ZOFRAN-ODT) 4 MG disintegrating tablet Take 1 tablet (4 mg total) by mouth every 8 (eight) hours as needed. 20 tablet 06/24/20 25 Active Encounters Date Type Department Care Team Description 06/24/2025 7:51 AM CDT - 06/24/2025 12:38 PM CDT Emergency [facility] [place] [address] Kavon Norris PA Syncope Discharge Disposition: Home or Self Care (Routine Discharge) 06/24/2025 Travel from Last 3 Months Social History Tobacco Use Types Packs/Day Years Used Date Smoking Tobacco: Never Smokeless Tobacco: Never Tobacco Cessation:Counseling Given: Not Answered Alcohol Use Standard Drinks/Week Comments Yes 0 [...] Mass Index 30.82 06/24/2025 7:46 AM CDT Plan of Treatment Upcoming Encounters Date Type Department Care Team (Late st Contact Info) Description 08/12/2025 8:20 AM CDT Office Visit [facility] Family Medicine - [place] [address], [address] [place] [phone] Gauri Reilly MD [address] [facility] [address] [place] [phone] Health Maintenance Due Date Last Done Comments Cervical Cancer Screening Pa p Smear (Age 21 to 29) Every 3 Years 1995 Cervical Cancer Screening 1995 Annual Physical 1998 Hepatitis C 2013 DTaP, Tdap and Td Vaccines ( 1 - Tdap) 2014 Hepatitis B Vaccines (1 of 3 - 19+ 3-dose series) 2014 HPV Vaccines (1 - 3-dose SCD M series) 2022 COVID-19 Vaccine (3 - 2023-2 5 season) 2024 04/04/2021, 03/07/2021 RSV Immunization or 60+ Years (1 - 1-dose 75+ series) 2070 Meningococcal B Vaccine Aged Out No l onger eligible based on patient's age to complete this topic Meningococcal Vaccine Aged Out No lelia leta eligible based on patient's age to complete this topic Pneumococcal Vaccine: Pediatrics (0 to 5 Years) and At-Risk Patients (6 to 49 Years) Aged Out No longer eligible b ased on patient's age to complete this topic RSV Immunizations Under 20 Months Aged Out No longer eligible b ased on patient's age to complete this topic Procedures Procedure Name Priority Date/Time Associated Diagnosis Comments CT HEAD WO CON STAT 06/24/2025 9:43 AM CDT ECG 12-LEAD Routine 06/24/2025 8:32 AM CDT Procedure Note - 06/24/2025 8:32 AM CDTThis note is in progress. [address] Test Date: 2025-06-24 Pat Name: EILEEN HARMON Department: 41 Room: [facility] Gender: Female Hand Decorator: [id number] : 1995 Requested By: KAVON NORRIS Order Number: [id number] Reading MD: Measurements Intervals [place] Rate: 67 P: 48 AL: 155 QRS: 72 QRSD: 90 T: 56 QT: 374 QTc: 396 Interpretive Statements SINUS RHYTHM WITH SINUS ARRHYTHMIA POSSIBLE LEFT ATRIAL ENLARGEMENT [-0.1mV P-WAVE IN V1/V2] MINIMAL ST DEPRESSION [0.025+ mV ST DEPRESSION] No previous ECG available for comparison TROPONIN, QUANT Routine 06/24/2025 8:27 AM CDT MAGNESIUM STAT 06/24/2025 8:27 AM CDT HCG QUANT (SERUM)-CHORIONIC GONADOTROPIN STAT 06/24/2025 8:27 AM CDT COMPREHENSIVE METABOLIC PANEL STAT 06/24/2025 8:27 AM CDT CBC W/DIFF AUTOMATED STAT 06/24/2025 8:27 AM CDT URINALYSIS STAT 06/24/2025 8:26 AM CDT from Last 3 Months Results * CT HEAD WO CON (06/24/2025 9:43 AM CDT) Anatomical Region Laterality Modality Head Computed Tomogra phy 06/24/2025 10:3 1 AM CDT Impressions 06/24/2025 10:32 AM CDT =====IMPRESSION:===== Unremarkable noncontrast CT of the head; no acute intracranial process identified. (CT has limited sensitivity for detection of acute ischemia). If acute ischemia is of clinical concern MRI can be considered. Ordered By: KAVON NORRIS Interpreted By: Yoselin Garcia MD, 06/24/2025 10:31 AM Narrative 06/24/2025 10:32 AM CDT [address] [address] Exam: CT head without contrast Exam Date/Time: [...] Procedure Note Yoselin Garcia MD - 06/24/2025 [facility] [address] [place], [place] [address] Exam: CT head without contrast Exam Date/Time: [...] concern MRI can be considered. Ordered By: KAVON NORRIS Interpreted By: Yoselin Garcia MD, 06/24/2025 10:[address] Final Resul t * (ABNORMAL) COMPREHENSIVE METABOLIC PANEL (06/24/2025 8:27 AM CDT) GLUCOSE 110(H) 70 - 99 MG/DL 06/24/2025 9:02 AM CDT [facility] BUN 16 7 - 18 MG/DL 06/24/2025 9:02 AM T [facility] CREATININE S/P/B 0.80 0.55 - 1.02 MG/DL 06/24/2025 9:02 AM T [facility] SODIUM S/P/B 138 136 - 145 MMOL/L 06/24/2025 9:02 AM T [facility] POTASSIUM S/P/B 4.0 3.5 - 5.1 MMOL/L 06/24/2025 9:02 AM T [facility] CHLORIDE S/P/B 107 97 - 115 MMOL/L 06/24/2025 9:02 AM T [facility] CO2 26.2 21 - 32 MMOL/L 06/24/2025 9:02 AM T [facility] CALCIUM S/P/B 9.6 8.5 - 10.1 MG/DL 06/24/2025 9:02 AM T [facility] BILIRUBIN TOTAL S/P/B 0.4 0.2 - 1.2 MG/DL 06/24/2025 9:02 AM [facility] Comment: THIS ASSAY IS NOT RECOMMENDED FOR PATIENTS UNDERGOING TREATMENT WITH ELTROMBOPAG DUE TO THE POTENTIAL FOR FALSELY ELEVATED RESULTS. TOTAL PROTEIN S/P/B 7.8 6.4 - 8.2 G/DL 06/24/2025 9:02 AM T [facility] ALBUMIN S/P/B 4.0 3.4 - 5.0 G/DL 06/24/2025 9:02 AM T [facility] AST 16 15 - 37 U/L 06/24/2025 9:02 AM T [facility] ALT 27 14 - 55 U/L 06/24/2025 9:02 AM T [facility] ALKALINE PHOSPHATASE S/P/B 74 50 - 136 U/L 06/24/2025 9:02 AM CDT [facility] ANION GAP 4.8 2 - 10 MMOL/L 06/24/2025 9:02 AM CDT [facility] BUN CREATININE RATIO 20.1 6 - 26 06/24/2025 9:02 AM CDT [facility] A/G RATIO 1.1 1.0 - 2.0 RATIO 06/24/2025 9:02 AM CDT [facility] GFR ESTIMATE >90 >90 ML/MIN/1.7 3 M2 06/24/2025 9:02 AM CDT [facility] Comment: NOTE: eGFR is not calculated for patients <18 years of age or gender unknown. This is an estimated GFR calculation using the new CKD EPI creatinine equation without race and so does not require a correction factor for race. This estimated GFR should not be used for calculating drug doses. 06/24/2025 8:27 AM CDT us [facility] Final Resul t [facility] [address] [place] [address], [place] [phone] * Quantitative HCG (06/24/2025 8:27 AM CDT) HCG QUANTITATIVE <1 MIU/ML 06/24/20 25 9:23 AM CDT [facility] Comment: WEEKS OF REFERENCE RANGES Non- [...] - 100,000 06/24/2025 8:27 AM CDT us [facility] Final Resul t [facility] [address] [place] [address], * (ABNORMAL) CBC W/DIFF AUTOMATED (06/24/2025 8:27 AM CDT) WBC 8.45 4.5 - 11.0 x10'3/uL 06/24/2025 8:39 AM CDT [facility] RBC 4.92 4.20 - 5.40 x10'6/uL 06/24/2025 8:39 AM CDT [facility] HGB 14.0 12.0 - 16.0 G/DL 06/24/2025 8:39 AM CDT [facility] HCT 41.9 38.0 - 48.0 % 06/24/2025 8:39 AM CDT [facility] MCV 85.2 81.0 - 99.0 FL 06/24/2025 8:39 AM CDT [facility] MCH 28.5 27.0 - 31.0 PG 06/24/2025 8:39 AM CDT [facility] MCHC 33.4 32.0 - 36.0 G/DL 06/24/2025 8:39 AM CDT [facility] RDW 13.3 11.5 - 14.5 % 06/24/2025 8:39 AM CDT [facility] PLT 319 130 - 400 x10'3/uL 06/24/2025 8:39 AM CDT [facility] MPV 10.0 9.3 - 12.2 FL 06/24/2025 8:39 AM CDT [facility] DIFFERENTIAL TYPE AUTOMATED DIFFERENTIAL 06/24/2025 8:39 AM CDT [facility] NEUTROPHILS % 66.2 % 06/24/2025 8:39 AM CDT [facility] LYMPHOCYTES % 16.7 % 06/24/2025 8:39 AM CDT [facility] MONOCYTES % 7.1 % 06/24/2025 8:39 AM CDT [facility] EOSINOPHILS 8.9 % 06/24/2025 8:39 AM CDT [facility] BASOPHILS 0.9 % 06/24/2025 8:39 AM CDT [facility] IMMATURE GRANS % 0.2 % 06/24/20 8:39 AM CDT [facility] ABS. NEUTROPHILS 5.59 1.80 - 7.70 x10'3/uL 06/24/2025 8:39 AM CDT [facility] ABS. LYMPHOCYTES 1.41 1.00 - 4.80 x10'3/uL 06/24/2025 8:39 AM CDT [facility] ABS. MONOCYTES 0.60 0.24 - 0.86 x10'3/uL 06/24/2025 8:39 AM CDT [facility] ABS. EOSINOPHILS 0.75(H) 0.04 - 0.36 x10'3/uL 06/24/2025 8:39 AM CDT [facility] ABS. BASOPHILS 0.08 0.01 - 0.08 x10'3/uL 06/24/2025 8:39 AM CDT [facility] ABS. IMMATURE GRANULOCYTES 0.02 0.00 - 0.49 x10'3/uL 06/24/2025 8:39 AM CDT [facility] 06/24/2025 8:27 AM CDT [facility] Final Resul t [facility] [address] [place] [address], * TROPONIN, QUANT (06/24/2025 8:27 AM CDT) Pathologist [facility] TROPONIN I HIGH SENSITIVITY 4 <54 ng/L 06/24/2025 9:20 AM CDT [facility] Comment: HIGH DOSES OF BIOTIN, TROPONIN-SPECIFIC AUTOANTIBODIES, AND ANTIBODY THERAPY CONTAINING HAMA MAY INTERFERE WITH THIS TEST RESULT. CORRELATION TO CLINICAL HISTORY AND PRESENTATION RECOMMENDED. 06/24/2025 8:27 AM CDT [facility] Final Resul t Performing Organization Address [facility] de Phone Number [facility] [address] [place] [address], * MAGNESIUM (06/24/2025 8:27 AM CDT) [facility] MAGNESIUM 2.3 1.8 - 2.4 MG/DL 06/24/2025 9:02 AM CDT [facility] 06/24/2025 8:27 AM CDT us [facility] Final Resul t Performing Organization Address City/[facility] Co de Phone Number [facility] [address] [place] [address], * (ABNORMAL) URINALYSIS (06/24/2025 8:26 AM CDT) Pathologist [facility] SPECIMEN TYPE URINE CLEAN CATCH 06/24/2025 8:27 AM CDT [facility] COLOR (U) LIGHT YELLOW 06/24/2025 9:04 AM CDT [facility] TRANSPARENCY CLEAR 06/24/2025 9:04 AM T [facility] SPECIFIC GRAVITY (U) 1.028 1.001 - 1.030 06/24/2025 9:04 AM T [facility] U PH 6.0 5.0 - 9.0 06/24/2025 9:04 AM T [facility] LEUKOCYTES (U) NEGATIVE NEGATIVE 06/24/2025 9:04 AM T [facility] NITRITES NEGATIVE NEGATIVE 06/24/2025 9:04 AM T [facility] PROTEIN RANDOM (U) 300(H) <30 MG/DL 06/24/2025 9:04 AM T [facility] GLUCOSE (U) NORMAL NORMAL MG/DL 06/24/2025 9:04 AM T [facility] KETONES MG/DL (U) 10(A) NEGATIVE MG/DL 06/24/2025 9:04 AM T [facility] UROBILINOGEN NORMAL NORMAL MG/DL 06/24/2025 9:04 AM T [facility] BILIRUBIN (U) NEGATIVE NEGATIVE MG/DL 06/24/2025 9:04 AM T [facility] BLOOD (U) TRACE(A) NEGATIVE 06/24/2025 9:04 AM T [facility] MUCUS RARE /LPF 06/24/2025 9:04 AM T [facility] WBC/HPF 2 <6 /HPF 06/24/2025 9:04 AM T [facility] RBC/HPF 1 <6 /HPF 06/24/2025 9:04 AM [facility] URINE SPECIMEN OBTAINED BY CLEAN CATCH PROCEDURE / Unknown 06/24/2025 8:26 AM CDT us [facility] URINE ORDERABLES Final Resu lt [facility] [address] [facility] [place] [address], [place] [phone] from Last 3 Months Insurance [facility] Advance Directives * Full Code (Latest Code Status on File) Date Activated Date Inactivated Comments 05/22/2024 2:02 PM 05/22/2024 7:39 PM Care Teams Director Of Scientific Research Relationship Specialty Start Date End Date None, Provider, PCP - General UNKNOWN PHYSICIAN SPECIALTY 05/11/24
--- NOTE | 2025-06-24 15:30 | ED.SEIZURE ---
HPI - Seizure General Chief Complaint: Seizure Stated Complaint: seizures Time Seen by Provider: 06/24/25 15:30 Source: patient Mode of arrival: ambulatory Limitations: no limitations History of Present Illness HPI Narrative: Patient is a 29-year-old female with new onset seizure-like activity today x2. She went to [facility] earlier this morning after the 1st seizure which lasted about 5 minutes and about 15 minutes recovery time. She appeared to be unconscious type state during the event according to the mother. That was noted on the 2nd time. The 1st time was unwitnessed. No injuries occurred. She has a very high stress level at this time with social stressors. We did discuss that she cannot drive at this time. We will work on getting records from [facility]. She said she had a full workup this morning at [facility] and was discharged home with Armando. It does not appear she was given seizure medication. She was given information for a neurologist. No history of seizures or migraines. MD complaint: possible seizure and feels seizure coming on Onset (ago): day(s) ( One) Description of Episode: loss of consciousness, tonic-clonic movement and post-event confusion Duration of episode: 5 -: minutes(s) Witnessed: Yes - by Bystander ( mom saw episode 2.; 1st was unwitnessed) Trauma: No Seizure History: No Place: home Possible Precipitating Event: stress Associated symptoms: other ( nausea) Treatments prior to arrival: none Are you currently using a commercial collector's license (CDL) as part of your employment, either self-employed or otherwise?: No Related Data Allergies Allergy/AdvReac Type Severity Reaction Status Date / Time No Known Allergies Allergy Unknown Verified 06/24/25 15:24 Review of Systems Review of Systems: All systems reviewed & are unremarkable except as noted in HPI and below Constitutional: Constitutional: Reports no additional constitutional complaints Eyes: Eyes: Reports no additional eye complaints ENT: Reports system reviewed and no additional complaints, except as documented Cardiovascular: Cardiovascular: Reports no additional cardiovascular complaints Respiratory: Respiratory: Reports no additional respiratory complaints Gastrointestinal: Gastrointestinal: Reports no additional gastrointestinal complaints Genitourinary: Genitourinary: Reports no additional female genitourinary complaints Musculoskeletal: Musculoskeletal: Reports no additional musculoskeletal complaints Integumentary/Breasts: Skin/Breast: Reports system reviewed and no additional complaints, except as docu Neurologic: Reports system reviewed and no additional complaints, except as documented Psychiatric: Psychiatric: Reports no additional psychiatric complaints Endocrine: Endocrine: Reports no additional endocrine complaints Hematologic/Lymphatic: Hematologic/Lymphatic: Reports no additional hematologic/lymphatic complaints Allergic/Immunologic: Allergic/Immunologic: Reports no additional allergic/immunologic complaints [facility] Past Medical History Medical History (Updated 06/24/25 @ 17:08 by Reagan Nova MD) Eczema Surgical History Surgical History Family History Family History Grandparent Hypertension Other Diabetes mellitus Family history of osteoarthritis Social History Social History Smoking status: Never smoker Second hand tobacco smoke exposure: No Alcohol intake: current Substance use: current Substance use type: marijuana Gender identity (if verbalized by the patient): Female Exam Const: General: healthy appearing Nutritional Appearance: well nourished Orientation/consciousness: patient oriented x3 Limitations: other limitations ( clinical condition) Other: patient is having phonophobia and asked for me to talk to the mother with questions due to a headache as well and some nausea HENMT: Head: normal to inspection Ears: external ears normal Face/Nose/Sinus: Normal external nose present Eyes: Conjunctivae: conjunctivae normal Pupils: Equal, round and reactive pupils present EOM: EOMs intact bilaterally Neck: Neck: normal visual inspection Chest: Chest palpation & inspection: normal inspection of the chest Resp: Effort & Inspection: normal respiratory effort and not labored Auscultation: clear to auscultation bilaterally and no crackles Cardio: Rate: regular rate Rhythm: regular rhythm Heart sounds: no murmurs GI: Inspection: non-distended GI Palp: Yes Soft to palpation and No Tenderness to palpation present (GI) Auscultation: normal bowel sounds : General: Yes bladder normal to palpation Back/Spine/Pelvis: Back: no CVA tenderness Skin: General skin exam: normal color Rashes: no rashes Wounds: no wounds Neuro: General: patient oriented x3, moves all extremities, no meningeal signs, no focal motor deficits and CN's II-XI intact bilaterally Cranial nerves: Yes Nystagmus not present Speech: normal speech Gait exam (Neuro): Normal gait present Other: fast exam is negative, NIH score is 0, GCS is 15 Extrem: General: normal to inspection Psych: Appearance: grossly normal and well kempt Mental Status: mental status grossly normal Affect: normal affect Attitude: cooperative Course Vital Signs Vital signs: Vital Signs Temperature 35.9 C L 06/24/25 15:12 Pulse Rate 84 06/24/25 15:12 Respiratory Rate 16 06/24/25 15:12 Blood Pressure 138/95 H 06/24/25 15:12 Pulse Oximetry 95 06/24/25 15:12 Oxygen Delivery Room Air 06/24/25 15:12 Temperature 36.3 C L 06/24/25 15:25 Pulse Rate 91 06/24/25 15:25 Respiratory Rate 18 06/24/25 15:25 Blood Pressure 140/96 H 06/24/25 15:25 Pulse Oximetry 99 06/24/25 17:18 Oxygen Delivery Room Air 06/24/25 15:25 MDM - Seizure MDM Narrative Medical decision making narrative: patient is a 29-year-old female with new onset seizure-like activities starting today x2. She had a full workup at [facility]. We will get records 1st to review what they have done this morning. Further we will monitor her closely. If she did not get medication for seizures then we will go ahead and give her Keppra IV. Zofran. Medical Records Attestation: I reviewed the patient's medical records. Medical records narrative: Patient's medical records came from [facility] and they worked her up for syncope. Cbc was normal, EKG was stable, chemistry panel was normal, negative, magnesium normal, urinalysis shows protein, troponin was negative, CT scan of the head was negative, patient claims marijuana and cocaine use and her plan was a follow-up with a neurologist and no driving. Lab Data Attestation: I reviewed the patient's lab results. Lab results narrative: I did a drug screen as there was not any done at the [facility] it was only by discussion. Labs: Lab Results 06/24/25 Range/Units 17:17 Urine Opiates Screen Negative (Negative) Urine Methadone Screen Negative (Negative) Ur Barbiturates Screen Negative (Negative) Ur Phencyclidine Scrn Negative (Negative) Ur Amphetamine Screen Negative (Negative) U Benzodiazepines Scrn Negative (Negative) Urine Cocaine Screen Positive A (Negative) U Cannabinoids Screen Positive A (Negative) Discharge Plan Discharge Clinical Impression: Seizure-like activity, Illicit drug use Patient Disposition: Home Condition: Stable Instructions: New-Onset Seizure in Adults (ED) Additional Instructions: Please follow-up with the neurologist as planned/ make an appointment as soon as possible for follow-up with new onset seizure activity. Do not drive. please avoid illicit drug use. Patient Language: Trinidadian Prescriptions: New levetiracetam [Keppra] 500 mg tablet 500 mg PO BID Qty: 30 0RF Follow-up/Referrals: Lenard Fox DO [Primary Care Provider] - Time of Disposition: 18:13
--- OUTSIDE RECORDS SUMMARY | 2025-06-24 15:57 | XMS_ITS | Clinical Summary ---
Author Organization [facility] Address [facility] [place] [address] Care Team Providers Care Paper Tube Machine Operator Name Role Phone None, Provider MD Primary [...] CDT - 06/24/2025 12:38 PM CDT Emergency [facility] [place] [address] Kavon Norris PA Syncope Discharge Disposition: Home [...] Description 08/12/2025 8:20 AM CDT Office Visit [facility] Family [facility] - [place] [address] [place] [address] Gauri Reilly MD [address] [facility] [address] [place] [address] [phone] Health Maintenance Due Date Last Done Comments [...] 8:32 AM CDTThis note is in progress. 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 : 1995 Requested By: KAVON NORRIS Order Number: [id number] Reading MD: Measurements Intervals [place] Rate: 67 P: 48 WV: 155 QRS: 72 QRSD: 90 T: 56 [...] 10:31 AM Narrative 06/24/2025 10:32 AM CDT [address] [address] Exam: CT head without contrast Exam Date/Time: [...] Procedure Note Yoselin Garcia MD - 06/24/2025 [facility] [address] [place], [place] [address] Exam: CT head without contrast Exam Date/Time: [...] - 99 MG/DL 06/24/2025 9:02 AM CDT [facility] BUN 16 7 - 18 MG/DL 06/24/2025 9:02 AM T [facility] CREATININE S/P/B 0.80 0.55 - 1.02 MG/DL 06/24/2025 9:02 AM T [facility] SODIUM S/P/B 138 136 - 145 MMOL/L 06/24/2025 9:02 AM T [facility] POTASSIUM S/P/B 4.0 3.5 - 5.1 MMOL/L 06/24/2025 9:02 AM T [facility] CHLORIDE S/P/B 107 97 - 115 MMOL/L 06/24/2025 9:02 AM T [facility] CO2 26.2 21 - 32 MMOL/L 06/24/2025 9:02 AM T [facility] CALCIUM S/P/B 9.6 8.5 - 10.1 MG/DL 06/24/2025 9:02 AM T [facility] BILIRUBIN TOTAL S/P/B 0.4 0.2 - 1.2 MG/DL 06/24/2025 9:[address] [facility] Comment: THIS ASSAY IS NOT RECOMMENDED FOR PATIENTS UNDERGOING TREATMENT WITH ELTROMBOPAG DUE TO THE POTENTIAL FOR FALSELY ELEVATED RESULTS. TOTAL PROTEIN S/P/B 7.8 6.4 - 8.2 G/DL 06/24/2025 9:02 AM T [facility] ALBUMIN S/P/B 4.0 3.4 - 5.0 G/DL 06/24/2025 9:02 AM T [facility] AST 16 15 - 37 U/L 06/24/2025 9:02 AM T [facility] ALT 27 14 - 55 U/L 06/24/2025 9:02 AM T [facility] ALKALINE PHOSPHATASE S/P/B 74 50 - 136 U/L 06/24/2025 9:02 AM CDT [facility] ANION GAP 4.8 2 - 10 MMOL/L 06/24/2025 9:02 AM CDT [facility] BUN CREATININE RATIO 20.1 6 - 26 06/24/2025 9:02 AM CDT [facility] A/G RATIO 1.1 1.0 - 2.0 RATIO 06/24/2025 9:02 AM CDT [facility] GFR ESTIMATE >90 >90 ML/MIN/1.7 3 M2 06/24/2025 9:02 AM CDT [facility] Comment: NOTE: eGFR is not [...] us [facility] Final Resul t [facility] [address] [place] [address], [place] [phone] * Quantitative HCG (06/24/2025 8:27 AM CDT) HCG QUANTITATIVE <1 MIU/ML 06/24/20 25 9:23 AM CDT [facility] Comment: WEEKS OF REFERENCE RANGES [...] us [facility] Final Resul t [facility] [address] [place] [address], * (ABNORMAL) CBC W/DIFF AUTOMATED (06/24/2025 8:27 AM CDT) WBC 8.45 4.5 - 11.0 x10'3/uL 06/24/2025 8:39 AM CDT [facility] RBC 4.92 4.20 - 5.40 x10'6/uL 06/24/2025 8:39 AM CDT [facility] HGB 14.0 12.0 - 16.0 G/DL 06/24/2025 8:39 AM CDT [facility] HCT 41.9 38.0 - 48.0 % 06/24/2025 8:39 AM CDT [facility] MCV 85.2 81.0 - 99.0 FL 06/24/2025 8:39 AM CDT [facility] MCH 28.5 27.0 - 31.0 PG 06/24/2025 8:39 AM CDT [facility] MCHC 33.4 32.0 - 36.0 G/DL 06/24/2025 8:39 AM CDT [facility] RDW 13.3 11.5 - 14.5 % 06/24/2025 8:39 AM CDT [facility] PLT 319 130 - 400 x10'3/uL 06/24/2025 8:39 AM CDT [facility] MPV 10.0 9.3 - 12.2 FL 06/24/2025 8:39 AM CDT [facility] DIFFERENTIAL TYPE AUTOMATED DIFFERENTIAL 06/24/2025 8:39 AM CDT [facility] NEUTROPHILS % 66.2 % 06/24/2025 8:39 AM CDT [facility] LYMPHOCYTES % 16.7 % 06/24/2025 8:39 AM CDT [facility] MONOCYTES % 7.1 % 06/24/2025 8:39 AM CDT [facility] EOSINOPHILS 8.9 % 06/24/2025 8:39 AM CDT [facility] BASOPHILS 0.9 % 06/24/2025 8:39 AM CDT [facility] IMMATURE GRANS % 0.2 % 06/24/20 8:39 AM CDT [facility] ABS. NEUTROPHILS 5.59 1.80 - 7.70 x10'3/uL 06/24/2025 8:39 AM CDT [facility] ABS. LYMPHOCYTES 1.41 1.00 - 4.80 x10'3/uL 06/24/2025 8:39 AM CDT [facility] ABS. MONOCYTES 0.60 0.24 - 0.86 x10'3/uL 06/24/2025 8:39 AM CDT [facility] ABS. EOSINOPHILS 0.75(H) 0.04 - 0.36 x10'3/uL 06/24/2025 8:39 AM CDT [facility] ABS. BASOPHILS 0.08 0.01 - 0.08 x10'3/uL 06/24/2025 8:39 AM CDT [facility] ABS. IMMATURE GRANULOCYTES 0.02 0.00 - 0.49 x10'3/uL 06/24/2025 8:39 AM CDT [facility] 06/24/2025 8:27 AM CDT [facility] Final Resul t [facility] [address] [place] [address], * TROPONIN, QUANT (06/24/2025 8:27 AM CDT) Pathologist [facility] TROPONIN I HIGH SENSITIVITY 4 <54 ng/L 06/24/2025 9:20 AM CDT [facility] Comment: HIGH DOSES OF BIOTIN, TROPONIN-SPECIFIC AUTOANTIBODIES, AND ANTIBODY THERAPY CONTAINING HAMA MAY INTERFERE WITH THIS TEST RESULT. CORRELATION TO CLINICAL HISTORY AND PRESENTATION RECOMMENDED. 06/24/2025 8:27 AM CDT [facility] Final Resul t Performing Organization Address [facility] de Phone Number [facility] [address] [place] [address], * MAGNESIUM (06/24/2025 8:27 AM CDT) [facility] MAGNESIUM 2.3 1.8 - 2.4 MG/DL 06/24/2025 9:02 AM CDT [facility] 06/24/2025 8:27 AM CDT us [facility] Final Resul t Performing Organization Address [facility] Co de Phone Number [facility] [address] [place] [address], * (ABNORMAL) URINALYSIS (06/24/2025 8:26 AM CDT) Pathologist [facility] SPECIMEN TYPE URINE CLEAN CATCH 06/24/2025 8:27 AM CDT [facility] COLOR (U) LIGHT YELLOW 06/24/2025 9:04 AM CDT [facility] TRANSPARENCY CLEAR 06/24/2025 9:04 AM T [facility] SPECIFIC GRAVITY (U) 1.028 1.001 - 1.030 06/24/2025 9:04 AM T [facility] U PH 6.0 5.0 - 9.0 06/24/2025 9:04 AM T [facility] LEUKOCYTES (U) NEGATIVE NEGATIVE 06/24/2025 9:04 AM T [facility] NITRITES NEGATIVE NEGATIVE 06/24/2025 9:04 AM T [facility] PROTEIN RANDOM (U) 300(H) <30 MG/DL 06/24/2025 9:04 AM T [facility] GLUCOSE (U) NORMAL NORMAL MG/DL 06/24/2025 9:04 AM T [facility] KETONES MG/DL (U) 10(A) NEGATIVE MG/DL 06/24/2025 9:04 AM T [facility] UROBILINOGEN NORMAL NORMAL MG/DL 06/24/2025 9:04 AM T [facility] BILIRUBIN (U) NEGATIVE NEGATIVE MG/DL 06/24/2025 9:04 AM T [facility] BLOOD (U) TRACE(A) NEGATIVE 06/24/2025 9:04 AM T [facility] MUCUS RARE /LPF 06/24/2025 9:04 AM T [facility] WBC/HPF 2 <6 /HPF 06/24/2025 9:04 AM T [facility] RBC/HPF 1 <6 /HPF 06/24/2025 9:[address] [facility] URINE SPECIMEN OBTAINED BY CLEAN CATCH PROCEDURE / Unknown 06/24/2025 8:26 AM CDT us [facility] URINE ORDERABLES Final Resu lt [facility] [address] [facility] [place] [address], [place] [phone] from Last 3 Months Insurance [facility] Advance Directives * Full Code (Latest Code Status on File) Date Activated Date Inactivated Comments 05/22/2024 2:02 PM 05/22/2024 7:39 PM Care Teams Paper Tube Machine Operator Relationship Specialty Start Date End Date None, Provider, PCP - General UNKNOWN PHYSICIAN SPECIALTY 05/11/24
--- OUTSIDE RECORDS SUMMARY | 2025-06-24 15:57 | XMS_ITS | Data Portability ---
Author Organization [facility], [facility] Address [address] [place] [address] Assessment No assessment recorded. Plan of Treatment Reminders Order Date Submit Date Provider Last Modified By Organization Details Last Modified Time Details Appointments None record ed. Lab None record ed. Referral None record ed. Procedures None record ed. Surgeries None record ed. Imaging None record ed. Medication Orders None record ed. Patient TargetsNo targets recorded. Patient InstructionsNo instructions recorded. Reason for Referral None Reported. Results Created Date Observation Date Name Description Value Unit Range Abnormal Flag Note LastModifiedBy Organization Detail LastModifiedTime 05/22/20 24 05/22/2024 HGB AND HCT hemoglobin 11.7 g/dL 12.0-1 6.0 low Not Available [facility] (Lab) [place], [address], 05/22/2024 17:06:53 05/22/20 24 05/22/2024 HGB AND HCT hematocrit 35.5 % 38.0-4 8.0 low Not Available [facility] (Lab) [place], [address], 05/22/2024 17:06:53 05/22/20 24 05/26/2024 SJS SURGI SHELLY PATHO LOGY [facility] atory Medic ine [address] [facility] [place] [address] Telep lon: [phone], exten cheri [phone] Patho logy Repor t Surgi shelly Patho logy Repor t Name: VIVIANE DEL TORO Speci men #: [id number] Age: [id number] (Age: 28) Locat ion: [facility]ORRAINE S Sex: F Proce dure Date: 2023 Hospi cresencio #: [id number] Date Recei don: 2023 Date Repor stephan: 2023 Provi wilma: EDDIE Chen MD [facility] e: Right fallo pian tube, ectop ic pregn kasia Clini shelly Histo ry: Ruptu red ectop ic pregn kasia. Gross Descr iptio n: Recei don in forma keisha, label ed with a patie nt label and as righ t fallo pian tube with ectop ic pregn kasia, is a 7.5 x 2.0 x 1.6 cm convo luted , fimbr iated fallo pian tube. A 1.5 x 1.5 cm perfo ratio n is locat ed 1.1 cm from the proxi mal christina n, secti oning throu gh which revea ls no discr ete lesio ns or dominick s. The fallo pian tube dista l to the perfo ratio n is dilat ed and conta ins hemor rhagi c tissu e. Separ ately recei don is a 2.8 x 1.1 x 1.0 cm fragm ent of soft to rubbe ry, mason to hemor rhagi c tissu e. Secti ons are submi tted as follo ws: 1 repre senta tive fallo pian tube perfo ratio n 2 entir e fimbr iated end of fallo pian tube 3 entir e separ ately recei don tissu e. Pleas e note: The speci men is retur darlene to [facility] [place] [place], follo wing micro scopi c exami natio n. Gross exami natio n (when appli cable ) was perfo rmed at [facility] cresencio, [address], [place] [address] . This case was inter prete d and muna d out at [facility], [address] , [place] [address] . FINAL DIAGN OSIS: Fallo pian tube, right , salpi ngect mercedes: -Fall opian tube with chori onic villi consi stent with ectop ic pregn kasia, with perfo ratio n Rocio ctron icall y Muna d Out BHANU FONSECA MD [id number] [phone] Not Available [facility] (Lab) [address] [facility], [place], [address], 05/26/2024 14:29:47 05/22/20 24 05/22/2024 xr shoul wilma RT min 2V [facility] [place] [address] [facility] [address] [place] [place] [id number] Examin ation: 2 or more views right should er Access ion: [id number] Exam date/t ophelia: 4:02 PM Reason For Exam: pt fell and is having contin ued right should er pain Compar tonya: None Techni que: 3 views Findin gs: Michelle l head rest within the glenoi d. Acromi oclavi cular joint intact . No acute fractu re or disloc ation. ====== ==== IMPRES CHERI: ====== ===== 1. No acute fractu re or disloc ation. ====== ====== ====== ====== ====== === Ordere d By: TREVOR James onical ly Signed By: Aaron Johnson on 4:28 PM Interp reted By: Aaron Johnson, 4:27 PM [email or web address] [facility] [address] [facility], [place], [address], 05/23/2024 17:20:55 Result Notes None recorded. Procedures Surgical History Date Name Laterality Status Provider Name and Address Organization Details Recorded Time 05/22/20 24 right salpingectomy completed Kavon Doran MD [address] [place] [address], [phone], [facility] [facility] 08/28/2024 17:14:47 08/06/20 22 Date of Last Pap Smear completed Kavon Doran MD [address] [place] [address], [phone], [facility] [facility] 08/28/2024 17:06:33 08/03/20 19 dilation and curettage completed Kavon Doran MD [address] [place] [address], [phone], [facility] [employer] [facility] 08/28/2024 17:05:56 Imaging Results None recorded. Procedure Notes None recorded. Medical Equipment None Reported. Allergies No known drug allergies Medications Name Sig Start Date Stop Date Status Note LastModified by Organization Details LastModified Time ibuprofen 800 mg tablet TAKE 1 TABLET BY MOUTH EVERY 8 HOURS NEEDED FOR PAIN. MAY TAKE EVERY 6 HOURS FOR FIRST 2 DAYS 08/28 completed Not Available Not Available Not Available oxycodone-a cetaminophe n 5 mg-325 mg tablet TAKE 1 TABLET BY MOUTH EVERY 6 HOURS NEEDED FOR PAIN 08/28 completed Not Available Not Available Not Available norethindro ne (contracept mary) 0.35 mg tablet TAKE 1 TABLET BY MOUTH ONCE DAILY 08/28 completed Not Available Not Available Not Available hydroxyzine pamoate 25 mg capsule TAKE 1 TO 2 CAPSULES BY MOUTH 4 TIMES DAILY NEEDED FOR ITCHING OR ANXIETY (INSOMNIA , NAUSEA, OR PAIN) 08/28 completed Not Available Not Available Not Available Vitals Date Recorded Body height Provider Name an d Address Organization Details Last Updated DateTime 03/30/2025 162.56 cm Jovita Carroll [place] [facility] 03/30/2025 12:00:03 Date Recorded Body height Body mass index (BMI) Body weight Body temperature Systolic And Diastolic Provider Name and Address Organization Details Last Updated DateTime 05/27/2024 162.56 cm 33.5 kg/m2 78006.5 1 g 97.9 [degF] 112/68 mm[Hg] Lynn Castle [facility] [employer] [facility] 4 11:35:37 Date Recorded Body height Body mass index (BMI) Body weight Body temperature Systolic And Diastolic Provider Name and Address Organization Details Last Updated DateTime 08/28/2024 162.56 cm 33.6 kg/m2 89295.3 9 g 98.3 [degF] 112/70 mm[Hg] Rosa Maria Berg [facility] [employer] [facility] 16:42:08 Social History Question Answer Notes LastModified by Clif[place] Details LastModified Time What Is Your Relationship Status? Single Boyfriend And No Probs Information not available 08/28/2024 Sex: Unknown Functional Status Question Answer Note LastModified by [place] Details LastModified Time Are you currently employed? Yes Information not available 05/27/2024 What is your occupation? [email or web address] Information not available 08/28/2024 Mental Status None recorded. Family History Relationship Description Onset Age of this Age Resolved Age Notes LastModified by Organization Details LastModified Time Father No current problems or disability [email or web address] Not available 05/27 11:29:56 Mother No current problems or disability [email or web address] Not available 05/27 11:29:56 Notes:mom has a breast lump but benign no hypercoaguable state and mom just had her and no Miscarriages Medical History Condition Response Other Cancer N High Blood Pressure N Colon Cancer N Cytomegalovirus N Hyperthyroidism N MRSA N Blood Transfusion N Herpes (HSV) N Breast Cancer N Lung Cancer N Depression N Hypothyroidism N Incontinence N Panic Attacks N Neurological Disorder N Deep Vein Thrombosis N Anxiety Disorder Y Autoimmune disease N Arthritis N Shingles N Tuberculosis/Positive PPD N Polycystic Ovarian Syndrome N Cervical Cancer N Hematuria N Chlamydia N Varicosities N Stroke N Seasonal allergies Y Crohn's Disease N Alzheimer's/Dementia N COPD/Emphysema N Endometriosis N HPV/Genital Warts N IBS (Irritable Bowel Syndrome) N History of Abnormal Pap N High Cholesterol N Liver Disease N Fibromyalgia N Kidney Infection N Ulcer N Kidney Disease N HIV N Gallbladder disease N Sickle Cell Disease/Trait N Von Willebrand disease N ADD/ADHD N Eating Disorder N Anemia Y Diabetes Mellitus (non-insulin dependent ) N Ovarian Problems N Multiple Sclerosis N Gonorrhea N Frequent Urinary Tract infections N Osteopenia N Headaches/migraines N GERD (reflux) N Ovarian Cancer N Diabetes (insulin dependent) N Seizures/Epilepsy N Fibroids N Heart Attack N Asthma N Lupus N Endometrial Cancer N Rubella N Blood Clotting Disorder N Bipolar Disorder N Diabetes Mellitus (during ) N Ulcerative Colitis N Hepatitis N Heart Disease N Pulmonary Embolism N RPR N Chicken Pox N Osteoporosis N Gynecological History Statement/Question Response Flow Moderate Frequency of Cycle (Q days) 30 Date of LMP 08/27/2024 HPV Vaccine Y Date of Last Pap Smear 08/06/2022 Duration of Flow (days) 7 Current Control Method None Age at Menarche 11 Obstetrics History GPAL:G 2 P 0 0 2 0 Type Value Multiple Births 0 Full Term 0 Induced 1 Spontaneous 0 Premature 0 Living 0 Ectopics 1 Total 2 Past Encounters Encounter ID Performer Location Encounter Start Date Encounter Closed Date Diagnosis/Indication Diagnosis SNOMED-CT Code Diagnosis ICD10 Code Diagnosis Note [id number] Kavon Doran MD [address] [place] [address] 05/27/2024 11:13:17 05/27/2024 12:21:52 Ruptured ectopic 89697780 O00.101 K66.1 COUNSELING was provided today regarding the following topics: healthy eating habits. Patient education given on weight management . . Postperati ve Recommenda tions: Excercise- limited to walks, light housework, and other light activities until seen again. ; Pelvic rest-inclu ding no intercours e or vaginal penetratio n, tampon use, or douches. FOLLOW-UP: Schedule a follow-up appointmen t in 4 weeks. .Additiona l diagnosis detail: Ruptured right tubal ectopic causing hemoperito neum Uses oral contraception 0557829 Z30.41 nexstellis as she gets acne but doesnt do well with historical ly other estrogen type I recommendA dditional diagnosis detail: Oral contracept mary use we will call this in to [facility] pharmacy if she would like it we will see her back in 2 months for a yearly exam [id number] Kavon Doran MD [facility] [address] [place] [address] 08/28/2024 16:31:10 09/09/2024 13:25:48 Postoperative visit 106518360 Z09 Feeling well. No N/V or Fever. Pain is minimal. No abnormal bleeding Bowels moving well and voiding without difficulty and discussed activity restrictio ns dos and do not's for her type of procedure and she understand s ad will contact us if any issues. Follow up in 6 months for routine exam and Pap smear. Health Concerns Section Related Observation LastModified by Organization Detai ls LastModified Time None Recorded Concern Status LastModified by Organization Details LastModified Time None Recorded Advance Directives Directive None Recorded Payers Insurance Date Sequence Insurance Name Policy Number Policy [place] Covered Member ID [place] Member ID Guarantor Name 03/30/2025 1 [facility] [id number] Eileen Jules [id number] Eileen Jules 04/12/2025 1 [facility] [id number] Eileen Jules [id number] Eileen Jules Notes Date Note Type Note Provider Name and Address Organization Details Recorded Time 05/27/2024 text/html Eileen is a 28 year old woman. Pt had an ectopic and had to go to the ER. Pt had to have her fallopian tube removed on 05/22/24 due to rupture fallopian tube. Pt does not have any additional concerns. Kavon Doran MD [facility] [place], [address], [facility] 05/27/2024 12:21:02 08/28/2024 text/html Post-OpReported bypatient.Onset/Ace ing:date of surgery: (05/22/2024) Quality:procedure: (LAPAROSCOPIC RIGHT SALPINGECTOMY) Context:reason for procedure: (ruptured ectopic and anemia and tachycardic) Associated Symptoms:incision healing well; no fatigue; normal appetite; normal bowel function; no constipation; no nausea; no emesis; pain improving; no pain; no fever; no bleeding; no lower extremity edema/pain; no dysuria/urinary symptoms The patient verbally consented to documentation via virtual scribe for this encounter. Taylor is a 28-year-old female who presents for postop visit. She underwent laparoscopic right salpingectomy on 05/22/24. She states she is doing well and has normal menstrual cycles. She has a history of , which required a D and C in 08/2019. Her last Pap was about 2 years ago, which was normal. Kavon Doran MD [facility] [place], [address], [facility] 09/08/2024 18:44:37 OBGyn Episode No OBEpisode recorded.
--- OUTSIDE RECORDS SUMMARY | 2025-06-24 15:57 | XMS_ITS | Encounter Summary ---
Author Organization [facility] Address [facility] [place] [address] Care Team Providers Care Industrial Psychologist Name Role Phone None, Provider Primary Care [...] AM CDT Leonides Coon, RN Active * [place] Suicide Severity Rating Scale (Screener/Recent Self-Report) Question [...] Description 08/12/2025 8:20 AM CDT Office Visit [facility] [place] [address], [address] [place] [phone] Gauri Reilly MD [address] [place] [address] [place] [phone] documented as of this encounter Visit Diagnoses Not on filedocumented in this encounter Care Teams Industrial Psychologist Relationship Specialty Start Date End Date None, Provider, PCP - General UNKNOWN PHYSICIAN SPECIALTY 05/11/24 documented as of this encounter
--- OUTSIDE RECORDS SUMMARY | 2025-06-24 15:57 | XMS_ITS | Clinical Summary ---
[facility] Address [address] [place] [address] Care Team Providers Care Loading Shovel Oiler Name Role Phone Unavailable Primary Care Provider [...] CDT - 04/18/2025 1:12 AM CDT Emergency [facility] Emergency Department [address] [place] [address] Singh Mustafa MD Viral illness (Primary Dx); Dehydration; Nausea and vomiting, unspecified vomiting type; Dermoid cyst of left ovary Discharge Disposition: Home or Self Care 04/17/2025 4:00 PM CDT Office Visit [facility] [address] [place] [phone] Catherine Bush FNP Viral upper respiratory [...] up to 6.2 cm in size. Follow-up [employer] evaluation recommended. DICTATION LOCATION: Location 4 Narrative [...] up to 6.2 cm in size. Follow-up [employer] evaluation recommended. DICTATION LOCATION: Location 4 us [...] up to 6.2 cm in size. Follow-up [employer] evaluation recommended. DICTATION LOCATION: Location [address] [facility] 04/18/2025 12:54 AM CDT EXAM: CT ABDOMEN [...] up to 6.2 cm in size. Follow-up [employer] evaluation recommended. DICTATION LOCATION: Location 4 us Singh Mustafa MD CT ORDERABLES Final Res ult * (ABNORMAL) URINALYSIS WITH REFLEX MICROSCOPIC (04/17/2025 10:16 PM CDT) COLOR UA Yellow Pale to Dark Yellow 04/17/2025 10:41 PM CDT [facility] CLARITY UA Cloudy(A) Clear 04/17/2025 10:41 PM CDT [facility] SPECIFIC GRAVITY UA 1.030 1.003 - 1.035 04/17/2025 10:41 PM CDT [facility] - [facility] PH UA 5.0 5.0 - 8.0 04/17/2025 10:41 PM CDT [facility] - [facility] LEUKOCYTE ESTERASE UA Negative Negative 04/17/2025 10:41 PM CDT [facility] - [facility] NITRITE UA Negative Negative 04/17/2025 10:41 PM CDT [facility] - . [facility] PROTEIN UA 2+(A) Negative 04/17/2025 10:41 PM CDT [facility] - . [facility] GLUCOSE UA Negative Negative 04/17/2025 10:41 PM CDT [facility] - . [facility] KETONES UA 2+(A) Negative 04/17/2025 10:41 PM T [facility] - [facility] UROBILINOGEN UA Normal <2.0 mg/dL 10:41 PM T [facility] - [facility] BILIRUBIN UA Negative Negative 04/17/2025 10:41 PM T [facility] - [facility] BLOOD UA Negative Negative 04/17/2025 10:41 PM CDT [facility] - [facility] WBC UA 0-2 0 - 2 /hpf 04/17/2025 10:41 PM CDT [facility] - . [facility] RBC UA 0-2 0 - 2 /hpf 04/17/2025 10:41 PM CDT [facility] - . [facility] BACTERIA UA Negative Negative /hpf 04/17/2025 10:41 PM [facility] - [facility] EPITHELIAL CELLS, URINE 0-5 0 - 5 /hpf 04/17/2025 10:41 PM T [facility] - [facility] Urine URINE SPECIMEN OBTAINED BY CLEAN CATCH PROCEDURE / Unknown Collection / Unknown 04/17/2025 10:16 PM CDT 04/17/2025 10:20 PM CDT us Singh Mustafa MD URINE ORDERABLES Final Re sult [facility] - [facility] CLIA# [id number] [address] [facility] [place] [address] * POC , URINE (04/17/2025 10:14 PM CDT) Pathologist [facility] HCG QUAL URINE Negative Negative 04/17/2025 10:[address] [facility] Urine 04/17/2025 10:1 4 PM CDT 04/17/2025 10:20 PM CDT Narrative [facility] - 04/17/2025 10:14 PM CDT Positive : Result is greater than or equal to 25 mIU/mL Negative: Result is less than 25 mIU/mL Invalid: Result is borderline or indeterminate,send to lab for serum test methodology. Singh Mustafa MD POINT OF CARE TESTING Fin al Result Performing Organization Address City/[facility]/ZIP Co de Phone Number [facility] CLIA# [id number] [address] [place] [address] * MONONUCLEOSIS SCREEN (04/17/2025 10:00 PM CDT) [facility] MONONUCLEOSIS SCREEN Negative Negative 04/17/2025 10:[address] [facility] Blood Venipuncture / Unknown 04/17/2025 10:00 PM CDT 04/17/2025 10:01 PM CDT Singh Mustafa MD HEMATOLOGY ORDERABLES Fin al Result [facility] CLCT# [id number] [address] [place] [address] * POC CREATININE (04/17/2025 9:53 PM CDT) [facility] CREATININE POC 0.70 0.50 - 1.00 mg/dL 04/17/2025 9:53 PM CDT [facility] [employer] [facility] GFR POC >60 >=60 mL/min/1.7 3 sq meter 04/17/2025 9:53 PM [facility] Comment:eGFR calculated with 2020 CKD-EPI equation. Vegetarian diet, extremely high or low muscle mass, and may affect results. Cystatin C with Glomerular Filtration Rate is a suitable alternative for these patients. Blood, whole 04/17/2025 9:53 PM CDT 04/17/2025 9:57 PM CDT Singh Mustafa MD POINT OF CARE TESTING Fin al Result Performing Organization Address [facility] Co de Phone Number [facility] CLIA# [id number] [address] [facility] [place] [address] * (ABNORMAL) RESPIRATORY PATHOGEN PCR PANEL (04/17/2025 9:53 PM CDT) [facility] COVID-19 PCR NOT DETECTED Not Detected 04/17/20 11:[address] [facility] Human Rhinovirus/En terovirus by PCR DETECTED(A) Not Detected 04/17/2025 11:[address] [facility] Upper Respiratory ENTIRE NASOPHARYNX / Unknown Collection / Unknown 04/17/2025 9:53 PM CDT 04/17/2025 9:[address] [facility] - 04/17/2025 11:21 PM CDT The Film [...] OR DERABLES Final Result Performing Organization Address [facility]/ZIP Co de Phone Number [facility] CLIA# [id number] [address] [place] [address] * (ABNORMAL) CBC WITH DIFFERENTIAL (04/17/2025 9:51 PM CDT) [facility] WBC 9.5 4.0 - 9.8 K/uL 04/17/2025 10:08 PM CDT [facility] - [facility] RBC 5.28(H) 3.90 - 4.90 M/uL 04/17/2025 10:08 PM CDT [facility] - [facility] HEMOGLOBIN 15.0(H) 11.8 - 14.8 g/dL 04/17/2025 10:08 PM CDT [facility] - [facility] HEMATOCRIT 45.8(H) 35.5 - 44.0 % 04/17/2025 10:08 PM CDT [facility] - . [facility] MCV 86.7 82.0 - 99.0 fL 04/17/2025 10:08 PM CDT [facility] - . [facility] MCH 28.4 27.2 - 32.6 pg 04/17/2025 10:08 PM CDT [facility] - . [facility] MCHC 32.8 31.5 - 35.5 g/dL 04/17/2025 10:08 PM CDT [facility] - . [facility] RDW 13.2 11.5 - 14.5 % 04/17/2025 10:08 PM CDT [facility] - . [facility] RDW-STDEV 41.6 37.1 - 48.7 fL 04/17/2025 10:08 PM CDT [facility] - . [place] PLATELETS 273 140 - 350 K/uL 04/17/2025 10:08 PM CDT [facility] - . [facility] MPV 10.0 9.3 - 12.4 fL 04/17/2025 10:08 PM CDT [facility] NEUTROPHILS 79 % 04/17/2025 10:08 PM CDT [facility] LYMPHOCYTES 7 % 04/17/2025 10:08 PM CDT [facility] MONOCYTES 11 % 04/17/2025 10:08 PM CDT [facility] - [facility] EOSINOPHILS 1 % 04/17/2025 10:08 PM CDT [facility] - . [facility] BASOPHILS 1 % 04/17/2025 10:08 PM CDT [facility] - [facility] IMMATURE GRANULOCYTES 0 % 04/17/2025 10:08 PM CDT [facility] - . [facility] NEUTROPHIL ABSOLUTE 7.49(H) 1.90 - 7.00 K/uL 04/17/2025 10:08 PM CDT [facility] - . [facility] LYMPHOCYTE ABSOLUTE 0.70 0.70 - 4.50 K/uL 04/17/2025 10:08 PM CDT [facility] - . [facility] MONOCYTE ABSOLUTE 1.06 0.10 - 1.30 K/uL 04/17/2025 10:08 PM CDT [facility] - . [facility] EOSINOPHIL ABSOLUTE 0.11 0.00 - 0.70 K/uL 04/17/2025 10:08 PM CDT [facility] - . [facility] BASOPHILS ABSOLUTE 0.07 0.00 - 0.20 K/uL 04/17/2025 10:08 PM CDT [facility] - [facility] IMMATURE GRANULOCYTES ABSOLUTE 0.03 0.00 - 0.03 K/uL 04/17/2025 10:08 PM CDT [facility] - [facility] Blood Venipuncture / Unknown 04/17/2025 9:51 PM CDT 04/17/2025 9:55 PM CDT Singh Mustafa MD HEMATOLOGY ORDERABLES Fin al Result [facility] CLIA# [id number] [address] [facility] [place], [place] [id number] * PROLACTIN (04/17/2025 9:51 PM CDT) [facility] PROLACTIN 16.2 4.8 - 23.3 ng/mL 04/17/2025 10:37 PM CDT [facility] - [facility] Blood Venipuncture / Unknown 04/17/2025 9:51 PM CDT 04/17/2025 9:55 PM CDT Singh Mustafa MD CHEMISTRY ORDERABLES Faviola l [id number] [address] [place] [address] * HCG QUANTITATIVE, BLOOD (04/17/2025 9:51 PM CDT) Pathologist [facility] HCG QUANT, BLOOD <0.6 <5.0 mIU/mL 04/17/2025 10:[address] [facility] Comment: HCG Quantitative Reference Range Male <= [...] Mustafa MD CHEMISTRY ORDERABLES Faviola l Result [facility]# [id number] [address] [place] [address] * LIPASE (04/17/2025 9:51 PM CDT) LIPASE 16 13 - 60 U/L 04/17/2025 10:37 PM CDT [facility] Blood Venipuncture / Unknown 04/17/2025 9:51 PM CDT 04/17/2025 9:55 PM CDT Singh Mustafa MD CHEMISTRY ORDERABLES Faviola l Result [facility] CLIA# [id number] [address] [facility] [place] [address] * (ABNORMAL) COMPREHENSIVE METABOLIC PANEL (04/17/2025 9:51 PM CDT) Pathologist [facility] SODIUM 138 136 - 145 mmol/L 04/17/2025 10:37 PM CDT [facility] POTASSIUM 4.3 3.5 - 5.0 mmol/L 04/17/2025 10:37 PM CDT [facility] - [facility] Comment:Hemolysis present. R esult may be falsely elevated. CHLORIDE 103 98 - 107 mmol/L 04/17/2025 10:37 PM CDT [facility] - [facility] CO2 21(L) 22 - 29 mmol/L 04/17/2025 10:37 PM CDT [facility] - [facility] CALCIUM 9.7 8.6 - 10.2 mg/dL 04/17/2025 10:37 PM CDT [facility] - . [facility] BUN 11 6 - 20 mg/dL 04/17/2025 10:37 PM CDT [facility] - . [facility] CREATININE 0.68 0.51 - 0.95 mg/dL 04/17/2025 10:37 PM CDT [facility] - . [facility] GLUCOSE 91 74 - 99 mg/dL 04/17/2025 10:37 PM CDT [facility] - [facility] TOTAL PROTEIN 7.7 6.7 - 8.6 g/dL 04/17/2025 10:37 PM CDT [facility] - [facility] ALBUMIN 4.7 3.5 - 5.2 g/dL 04/17/2025 10:[address] [facility] BILIRUBIN TOTAL 0.7 0.0 - 1.2 mg/dL 04/17/2025 10:[address] [facility] ALKALINE PHOSPHATASE 87 35 - 104 U/L 04/17/2025 10:[address] [facility] AST 04/17/2025 10:[address] [facility] Comment:Test cannot be perfo rmed. Sample hemolysis interference above limits. Redraw if indicated. ALT 22 <34 U/L 04/17/2025 10:[address] [facility] GFR >60 >=60 mL/min/1.7 3 sq meter 04/17/2025 10:[address] [facility] Comment:eGFR calculated with 2020 CKD-EPI equation. Vegetarian diet, extremely high or low muscle mass, and may affect results. Cystatin C with Glomerular Filtration Rate is a suitable alternative for these patients. ANION GAP 14 8 - 16 mmol/L 04/17/2025 10:[address] [facility] Blood Venipuncture / Unknown 04/17/2025 9:51 PM CDT 04/17/2025 9:[address] [facility] - 04/17/2025 10:37 PM CDT Samples containing indocyanine green cause interferences on Total and/or Direct Bilirubin and must not be measured. us Singh Mustafa MD CHEMISTRY ORDERABLES Faviola l Result [facility] CLIA# [id number] [address] [facility] [address] [place] [id number] * POC RAPID STREP A ANTIGEN (04/17/2025 4:13 PM CDT) [facility] RAPID STREP POC Negative Negative, Indeterminate [facility] INTERNAL KIT QC POC Pass Pass [facility] KIT LOT NUMBER POC [id number] [facility] KIT EXP DATE POC 02/11/26 [facility] READ METHOD POC Visual [facility] Upper Respiratory SPECIMEN FROM THROAT / Unknown 04/17/2025 4:13 PM CDT Catherine Bush [facility] POINT OF CARE TESTING Final Result Performing Organization Address City/[facility]/ZIP Co de Phone Number [facility] CLIA# [id number] [place] [address] * POC COVID-19 ANTIGEN (04/17/2025 4:12 PM CDT) COVID-19 ANTIGEN POC Presumptively Negative Presumptively Negative [facility] INTERNAL KIT QC POC Pass Pass [facility] KIT LOT NUMBER POC [id number] [facility] KIT EXP DATE POC 02/06/2026 [facility] READ METHOD POC Visual [facility] Upper Respiratory 04/17/2025 4:12 PM CDT Catherine Bush [facility] POINT OF CARE TESTING Final Result Performing Organization Address City/[facility] Co de Phone Number [facility] CLIA# [id number] [place] [address] * POC INFLUENZA A AND B ANTIGEN (04/17/2025 4:12 PM CDT) INFLUENZA A AG POC Negative/Not Detected Negative/No t Detected [facility] INFLUENZA B AG POC Negative/Not Detected Negative/No t Detected [facility] INTERNAL KIT QC POC Pass Pass [facility] KIT LOT NUMBER POC [id number] [facility] KIT EXP DATE POC 01/01/2027 [facility] READ METHOD POC Visual [facility] Upper Respiratory ANTERIOR NARES SWAB / Unknown 04/17/2025 4:12 PM CDT Catherine Bush [employer] POINT OF CARE TESTING Final Result [facility] CLIA# [id number] [place] [address] from Last 3 Months Insurance [id number] [id number]
--- OUTSIDE RECORDS SUMMARY | 2025-06-24 15:57 | XMS_ITS | Encounter Summary ---
Author Organization [facility] Address [address] [place] [id number] Care Team Providers Care Greenhouse Assistant Name Role Phone None, Provider Primary Care Provider Unavaila ble Reason for Referral * Imaging (Emergency) - New Request Specialty Diagnoses / Procedures Referred By Celio newman Referred To Contact RADIOLOGY Procedures CT HEAD WO CON Lacho Norris PA [address] [place] [address] Phone: tel: fax: Referral ID Status Reason Start Date Expiration Date V isits Requested Visits Authorized [id number] New Request 06/24/2025 06/24/2026 1 1 Reason for Visit * Reason Comments Syncope Encounter Details Date Type Department Care Team (Late st Contact Info) Description 06/24/2025 7:51 AM CDT - 06/24/2025 12:38 PM CDT Emergency [facility] [place] [address] Lacho Norris PA [address] [place], [place] [id number] Syncope Discharge Disposition: Home or Self Care [...] AM CDT Tiburcio Coon, RN Active * [place] Suicide Severity Rating Scale (Screener/Recent Self-Report) Question [...] such as bicycle riding or swimming alone. Ngkkkjw-hyd-kpjyvtm ibuprofen or Tylenol as directed for any pain. May use Zofran as needed for any nausea. Return emergency department if symptoms continue or worsen. * Attachments The following attachments cannot be sent through Care Everywhere. * Seizures Discharge Instructions, Adult (Citizen Of [place]) documented in this encounter Medications at Time [...] Description 08/12/2025 8:20 AM CDT Office Visit [facility] Family Medicine - [address], [address] [place] [address] Gauri Reilly MD [address] [place] [phone] Pending Results Name Type Priority Associated Diagnoses Date /Time ECG 12 lead EKG-NonRad Routine 06/24/2025 8: 32 AM CDT documented as of this encounter Procedures Procedure Name Priority Date/Time Associated Diagnosis Comments CT HEAD WO CON STAT 06/24/2025 9:43 AM CDT ECG 12-LEAD Routine 06/24/2025 8:32 AM CDT Procedure Note - 06/24/2025 8:32 AM CDTThis note is in progress. 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: [id number] : 1995 Requested By: LACHO NORRIS Order Number: [id number] Reading MD: Measurements Intervals [place] Rate: 67 P: 48 WA: 155 QRS: 72 QRSD: 90 T: 56 [...] 10:31 AM Narrative 06/24/2025 10:32 AM CDT [address] [address] Exam: CT head without contrast Exam Date/Time: [...] Procedure Note Yoselin Garcia MD - 06/24/[address] [address] Exam: CT head without contrast Exam Date/Time: [...] * TROPONIN, QUANT (06/24/2025 8:27 AM CDT) [facility] TROPONIN I HIGH SENSITIVITY 4 <54 ng/L 06/24/2025 9:20 AM CDT [facility] Comment: HIGH DOSES OF BIOTIN, TROPONIN-SPECIFIC AUTOANTIBODIES, AND ANTIBODY THERAPY CONTAINING HAMA MAY INTERFERE WITH THIS TEST RESULT. CORRELATION TO CLINICAL HISTORY AND PRESENTATION RECOMMENDED. 06/24/2025 8:27 AM CDT [facility] Final Resul t Performing Organization Address City/[facility] [[email or web address]] Co de Phone Number [facility] [address] [place] [address], * MAGNESIUM (06/24/2025 8:27 AM CDT) [facility] MAGNESIUM 2.3 1.8 - 2.4 MG/DL 06/24/2025 9:02 AM CDT [facility] 06/24/2025 8:27 AM CDT [facility] Final Resul t Performing Organization Address City/[facility] [[email or web address]] Co de Phone Number [facility] [address] [place] [address], * Quantitative HCG (06/24/2025 8:27 AM CDT) [facility] HCG QUANTITATIVE <1 MIU/ML 06/24/20 9:23 AM CDT [facility] Comment: WEEKS OF REFERENCE [...] us [facility] Final Resul t [facility] [address] [place] [address], [place] [phone] * (ABNORMAL) COMPREHENSIVE METABOLIC PANEL (06/24/2025 8:27 AM CDT) [facility] GLUCOSE 110(H) 70 - 99 MG/DL 06/24/2025 9:02 AM CDT [facility] BUN 16 7 - 18 MG/DL 06/24/2025 9:02 AM CDT [facility] CREATININE S/P/B 0.80 0.55 - 1.02 MG/DL 06/24/2025 9:02 AM CDT [facility] SODIUM S/P/B 138 136 - 145 MMOL/L 06/24/2025 9:02 AM CDT [facility] POTASSIUM S/P/B 4.0 3.5 - 5.1 MMOL/L 06/24/2025 9:02 AM CDT [facility] CHLORIDE S/P/B 107 97 - 115 MMOL/L 06/24/2025 9:02 AM CDT [facility] CO2 26.2 21 - 32 MMOL/L 06/24/2025 9:02 AM CDT [facility] CALCIUM S/P/B 9.6 8.5 - 10.1 MG/DL 06/24/2025 9:02 AM CDT [facility] BILIRUBIN TOTAL S/P/B 0.4 0.2 - 1.2 MG/DL 06/24/2025 9:02 AM CDT [facility] Comment: THIS ASSAY IS NOT RECOMMENDED FOR PATIENTS UNDERGOING TREATMENT WITH ELTROMBOPAG DUE TO THE POTENTIAL FOR FALSELY ELEVATED RESULTS. TOTAL PROTEIN S/P/B 7.8 6.4 - 8.2 G/DL 06/24/2025 9:02 AM CDT [facility] ALBUMIN S/P/B 4.0 3.4 - 5.0 G/DL 06/24/2025 9:02 AM CDT [facility] AST 16 15 - 37 U/L 06/24/2025 9:02 AM CDT [facility] ALT 27 14 - 55 U/L 06/24/2025 9:02 AM CDT [facility] ALKALINE PHOSPHATASE S/P/B 74 50 - 136 U/L 06/24/2025 9:02 AM CDT [facility] ANION GAP 4.8 2 - 10 MMOL/L 06/24/2025 9:02 AM T [facility] BUN CREATININE RATIO 20.1 6 - 26 06/24/2025 9:02 AM T [facility] A/G RATIO 1.1 1.0 - 2.0 RATIO 06/24/2025 9:02 AM T [facility] GFR ESTIMATE >90 >90 ML/MIN/1.7 3 M2 06/24/2025 9:02 AM T [facility] Comment: NOTE: eGFR is [...] CDT [facility] Final Resul t [facility] [address] [place] [address], [place] [phone] * (ABNORMAL) CBC W/DIFF AUTOMATED (06/24/2025 8:27 AM CDT) [facility] WBC 8.45 4.5 - 11.0 x10'3/uL 06/24/2025 8:39 AM CDT [facility] RBC 4.92 4.20 - 5.40 x10'6/uL 06/24/2025 8:39 AM CDT [facility] HGB 14.0 12.0 - 16.0 G/DL 06/24/2025 8:39 AM CDT [facility] HCT 41.9 38.0 - 48.0 % 06/24/2025 8:39 AM CDT [facility] MCV 85.2 81.0 - 99.0 FL 06/24/2025 8:39 AM CDT [facility] MCH 28.5 27.0 - 31.0 PG 06/24/2025 8:39 AM CDT [facility] MCHC 33.4 32.0 - 36.0 G/DL 06/24/2025 8:39 AM CDT [facility] RDW 13.3 11.5 - 14.5 % 06/24/2025 8:39 AM CDT [facility] PLT 319 130 - 400 x10'3/uL 06/24/2025 8:39 AM CDT [facility] MPV 10.0 9.3 - 12.2 FL 06/24/2025 8:39 AM CDT [facility] DIFFERENTIAL TYPE AUTOMATED DIFFERENTIAL 06/24/2025 8:39 AM CDT [facility] NEUTROPHILS % 66.2 % 06/24/2025 8:39 AM CDT [facility] LYMPHOCYTES % 16.7 % 06/24/2025 8:39 AM CDT [facility] MONOCYTES % 7.1 % 06/24/2025 8:39 AM CDT [facility] EOSINOPHILS 8.9 % 06/24/2025 8:39 AM CDT [facility] BASOPHILS 0.9 % 06/24/2025 8:39 AM CDT [facility] IMMATURE GRANS % 0.2 % 06/24/20 8:39 AM CDT [facility] ABS. NEUTROPHILS 5.59 1.80 - 7.70 x10'3/uL 06/24/2025 8:39 AM CDT [facility] ABS. LYMPHOCYTES 1.41 1.00 - 4.80 x10'3/uL 06/24/2025 8:39 AM CDT [facility] ABS. MONOCYTES 0.60 0.24 - 0.86 x10'3/uL 06/24/2025 8:39 AM CDT [facility] ABS. EOSINOPHILS 0.75(H) 0.04 - 0.36 x10'3/uL 06/24/2025 8:39 AM CDT [facility] ABS. BASOPHILS 0.08 0.01 - 0.08 x10'3/uL 06/24/2025 8:39 AM CDT [facility] ABS. IMMATURE GRANULOCYTES 0.02 0.00 - 0.49 x10'3/uL 06/24/2025 8:39 AM CDT [facility] 06/24/2025 8:27 AM CDT us [facility] Final Resul t [facility] [address] [place] [address], [place] [phone] * (ABNORMAL) URINALYSIS (06/24/2025 8:26 AM CDT) SPECIMEN TYPE URINE CLEAN CATCH 06/24/2025 8:27 AM T [facility] COLOR (U) LIGHT YELLOW 06/24/2025 9:04 AM T [facility] TRANSPARENCY CLEAR 06/24/2025 9:04 AM [facility] SPECIFIC GRAVITY (U) 1.028 1.001 - 1.030 06/24/2025 9:04 AM T [facility] U PH 6.0 5.0 - 9.0 06/24/2025 9:04 AM [facility] LEUKOCYTES (U) NEGATIVE NEGATIVE 06/24/2025 9:04 AM T [facility] NITRITES NEGATIVE NEGATIVE 06/24/2025 9:04 AM [facility] PROTEIN RANDOM (U) 300(H) <30 MG/DL 06/24/2025 9:04 AM T [facility] GLUCOSE (U) NORMAL NORMAL MG/DL 06/24/2025 9:04 AM [facility] KETONES MG/DL (U) 10(A) NEGATIVE MG/DL 06/24/2025 9:04 AM [facility] UROBILINOGEN NORMAL NORMAL MG/DL 06/24/2025 9:04 AM T [facility] BILIRUBIN (U) NEGATIVE NEGATIVE MG/DL 06/24/2025 9:04 AM [facility] BLOOD (U) TRACE(A) NEGATIVE 06/24/2025 9:04 AM T [facility] MUCUS RARE /LPF 06/24/2025 9:04 AM [facility] WBC/HPF 2 <6 /HPF 06/24/2025 9:04 AM [facility] RBC/HPF 1 <6 /HPF 06/24/2025 9:04 AM CDT [facility] URINE SPECIMEN OBTAINED BY CLEAN CATCH PROCEDURE / Unknown 06/24/2025 8:26 AM CDT [facility] Final Resu lt [facility] [address] [place] [address], documented in this encounter Visit Diagnoses Diagnosis Blunt head injury- Primary Head injury, unspecified Syncope Syncope and collapse Seizure-like activity ([facility]/HCC [facility]/HCC) Other convulsions documented in this encounter Administered [...] RN) documented in this encounter Care Teams Greenhouse Assistant Relationship Specialty Start Date End Date None, Provider, MD PCP - General UNKNOWN PHYSICIAN SPECIALTY 05/11/24 documented as of this encounter
--- NOTE | 2025-06-24 16:00 | PC.NURSE ---
RN contacts [facility] medical records. Release of information form sent. Rosalinda in medical records states she will be waiting for the fax.
--- NOTE | 2025-06-24 16:18 | PC.NURSE ---
RN followed up with [facility] medical records. Staff states they are currently working on the fax back right now.
--- NOTE | 2025-06-24 16:39 | PC.NURSE ---
RN calls back to follow up of fax. Staff member states it was sent to the wrong number and they would be sending it to the correct number now.
--- NOTE | 2025-06-24 17:02 | PC.NURSE ---
RN called back medical records for status update. Medical records is closed with no forwarding number. RN calls warehouse shipping receiving clerk Starla. Starla states that she will send over the condensed pt case file that she has access to at this time.
[2025-06-24] MEDS: levETIRAcetam 1000MG/NACL100ML 1,000 MG/100 ML BAG 400 MG IVPB (17:18)
[2025-06-24 18:10] LABS: Cannabinoid Screen Urine Positive (Negative)
== END 2025-06-24 19:02 | disposition home or self-care (01) ==
PROVIDERS: Emergency Provider Emergency Medicine; PCP Family Medicine
DX: R56.9 Unspecified convulsions (principal); F12.90 Cannabis use, unspecified, uncomplicated; F14.90 Cocaine use, unspecified, uncomplicated
CPT/HCPCS: 80307; 96374; 99284; J1953